=== PATIENT | female | born 1945 | race Caucasian/White ===

== ENCOUNTER 2017-05-03 15:25 | Outpatient (CLI) | payer MEDICARE, OTHER ==
[2017-05-03 19:05] LABS: ALBUMIN/GLOBULIN RATIO 1.2 (1.0-2.2); BILIRUBIN,TOTAL 0.7 mg/dL (0.2-1.0); BUN - BLOOD UREA NITROGEN 21 mg/dL (6-20); CALCIUM 9.5 mg/dL (8.5-10.3); CARBON DIOXIDE - CO2 26 mmol/L (21-32); CHLORIDE 105 mmol/L (101-111); CHOL/HDL RATIO 3.3 (<4.4); CHOLESTEROL 212 mg/dL; CREATININE 1.5 mg/dL (0.4-1.0); GFR - MDRD 34 (>89); GLUCOSE 105 mg/dL (70-100); HDL CHOLESTEROL 64 mg/dL; LDL/HDL RATIO 1.6 (<4.4); POTASSIUM 3.9 mmol/L (3.5-5.0); SODIUM 143 mmol/L (135-145); TOTAL PROTEIN 7.1 g/dL (6.7-8.2); TRIGLYCERIDES 235 mg/dL; VLDL CHOLESTEROL 47 mg/dL
[2017-05-03 19:13] LABS: INR 1.1 (0.8-1.2); PT - PROTHROMBIN TIME 11.9 secs (9.9-12.6)
[2017-05-03 19:17] LABS: BASOPHILS # (AUTO) 0.1 10^3/uL (0.0-0.1); BASOPHILS % (AUTO) 0.7 %; EOSINOPHILS # (AUTO) 0.3 10^3/uL (0.0-0.7); EOSINOPHILS % (AUTO) 3.6 %; HCT - HEMATOCRIT 37.3 % (37.0-47.0); HGB - HEMOGLOBIN 12.3 g/dL (12.0-16.0); LYMPHOCYTES % (AUTO) 10.7 %; MEAN CORPUSCULAR HEMOGLOBIN 33.4 pg (27.0-31.0); MEAN CORPUSCULAR HGB CONC 33.1 g/dL (32.0-36.0); MEAN PLATELET VOLUME 8.2 fL (7.9-10.8); MONOCYTES # (AUTO) 0.7 10^3/uL (0.0-1.0); MONOCYTES % (AUTO) 7.3 %; NEUTROPHILS # (AUTO) 7.4 10^3/uL (1.5-6.6); NEUTROPHILS % (AUTO) 77.7 %; NUCLEATED RED BLOOD CELLS AUTO 0.1 /100WBC; RED BLOOD COUNT 3.69 10^6/uL (4.20-5.40); RED CELL DISTRIBUTION WIDTH 17.8 % (12.0-15.0); UNCORRECTED WHITE BLOOD COUNT 9.5 x10^3/uL; WHITE BLOOD COUNT 9.5 x10^3/uL (4.8-10.8)
== END 2017-05-03 15:26 | disposition home or self-care (01) ==
LOC: LAB.WCP 15:25
PROVIDERS: ATTEND Family Medicine
DX: F10.20 Alcohol dependence, uncomplicated (principal)
CPT/HCPCS: 36415; 80053; 80061; 85025; 85610

== ENCOUNTER 2017-07-12 14:09 | Outpatient (CLI) | payer MEDICARE, OTHER ==
--- NOTE | 2017-07-12 18:20 | Ultrasound Report ---
RIGHT BREAST ULTRASOUND: 07/12/2017 CLINICAL INDICATION: Palpable abnormality right upper breast, history of left breast cancer status post lumpectomy. 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 FINDINGS: Ultrasound of the palpable abnormality identified by the patient was performed. Unremarkable parenchymal lobules are seen. No discrete solid or cystic lesion is identified. No sonographically suspicious findings are seen. IMPRESSION: NEGATIVE EXAMINATION. RECOMMENDATION: Routine annual screening unless otherwise clinically indicated. BIRADS category: 1, negative. TD: 07/12/2017 18:19
--- NOTE | 2017-07-14 08:54 | Mammography Report ---
DIGITAL DIAGNOSTIC BILATERAL MAMMOGRAM: 07/12/2017 CLINICAL INDICATION: Palpable abnormality right breast, history of left breast cancer status post lumpectomy and radiation therapy. COMPARISON: Films from [place], [place], dated 03/11/2015, 02/20/2013, 2011, 05/12/2010; breast ultrasound 02/20/2013; breast MRI 03/29/2013. TECHNIQUE: Bilateral CC, MLO, true lateral views were obtained. FINDINGS The breasts demonstrate scattered fibroglandular densities bilaterally. Postoperative and post-treatment changes in the left breast are stable. Coarse and punctate, typically benign calcifications are present. No suspicious masses, clustered microcalcifications, or regions of architectural distortion are identified. Specifically, no mammographic abnormality is appreciated in the 12 o'clock position of the right breast, at the site indicated by the marker. Please also refer to right breast ultrasound of the same day. IMPRESSION: BENIGN FINDINGS. RECOMMENDATIONS: Routine annual screening unless otherwise clinically indicated. BIRADS category 2 - Benign findings. STANDARD QUALIFYING STATEMENTS 1. This examination was reviewed with the aid of Computed-Aided Detection (CAD) . 2. A negative or benign imaging report should not delay biopsy if clinically suspicious findings are present. Consider surgical consultation if warranted. More than 5 % of cancers are not identified by imaging. 3. Dense breasts may obscure an underlying neoplasm. TD: 07/12/2017 18:26 CHRISTOFER
== END 2017-07-12 14:10 | disposition home or self-care (01) ==
LOC: DI 14:09
PROVIDERS: ATTEND Family Medicine
DX: N63.11 Unspecified lump in the right breast, upper outer quadrant (principal); Z85.3 Personal history of malignant neoplasm of breast
CPT/HCPCS: 76642; 77066

== ENCOUNTER 2017-09-22 10:26 | Outpatient (CLI) | payer MEDICARE, OTHER ==
--- NOTE | 2017-09-26 14:45 | DEXA Report ---
DEXA SCAN 09/22/2017 CLINICAL INDICATION: Postmenopausal. TECHNIQUE: Dual energy x-ray absorptiometry (DXA) was performed on a [employer] DD system. Regions measured are the AP spine, femoral neck, and, if needed, forearm. COMPARISON: None. FINDINGS Data for the lumbar spine is as follows: REGION BMD (g/cm/cm) T-SCORE Z-SCORE L1 1.087 -0.4 1.2 L2 1.211 0.1 1.6 L3 1.373 1.4 3.0 L4 1.614 3.4 5.0 L1-L4 1.334 1.3 2.8 NOTE: All evaluable vertebrae are used for classification. Data for the hip is as follows: REGION BMD (g/cm/cm) T-SCORE Z-SCORE Neck 0.902 -1.0 0.7 TOTAL 0.795 -1.7 -0.2 NOTE: The femoral neck or total proximal femur, whichever is lowest, is used for classification. IMPRESSION WHO CLASSIFICATION BASED ON THE INTERNATIONAL REFERENCE STANDARD IS OSTEOPENIA. FRACTURE RISK IS INCREASED. RECOMMENDATION: Patients with diagnosis of osteoporosis or osteopenia should have regular bone mineral density assessment. For those eligible for Medicare, routine testing is allowed once every 2 years. Testing frequency can be increased for patients who have rapidly progressing disease or for those who are receiving medical therapy to restore bone mass. COMMENT World Health Organization (WHO) definitions for osteoporosis and osteopenia: NORMAL BMD: T-score at 1.0 or higher, fracture risk is low. OSTEOPENIA BMD: T-score between 1.0 and -2.5, fracture risk is increased. OSTEOPOROSIS BMD: T-score at 2.5 or lower, fracture risk high. National Osteoporosis Foundation recommends: 1. Obtain adequate dietary calcium (at least 1200 mg per day) and vitamin D (400 -800 international units per day). 2. Participate, as appropriate, in regular weightbearing and muscle- strengthening exercise. 3. Avoid tobacco use and reduce alcohol and caffeine intake. 4. For more detailed information see the website at www.NOF.org. TD: 09/22/2017 16:18 MTDJohn
== END 2017-09-22 10:27 | disposition home or self-care (01) ==
LOC: DI 10:26
PROVIDERS: ATTEND Family Medicine
DX: M85.88 Other specified disorders of bone density and structure, other site (principal); F10.20 Alcohol dependence, uncomplicated
CPT/HCPCS: 77080

== ENCOUNTER 2018-03-15 15:31 | Outpatient (CLI) | payer MEDICARE, OTHER | END 2018-03-15 15:32 | disposition critical access hospital (66) | LOC: EMS 15:31 | PROVIDERS: ATTEND Surgery | DX: R46.4 Slowness and poor responsiveness (principal) | CPT/HCPCS: A0425; A0427 ==

== ENCOUNTER 2018-03-15 15:49 | Inpatient (IN) | payer MEDICARE, OTHER ==
[2018-03-15] MEDS ORDERED: SODIUM CHLORIDE 0.9% 1,000 ML IV ONE (16:11)
[2018-03-15 16:51] LABS: BASOPHILS # (AUTO) 0.1 10^3/uL (0.0-0.1); EOSINOPHILS # (AUTO) 0.2 10^3/uL (0.0-0.7); EOSINOPHILS % (AUTO) 1.3 %; HGB - HEMOGLOBIN 14.6 g/dL (12.0-16.0); LYMPHOCYTES # (AUTO) 1.2 10^3/uL (1.5-3.5); LYMPHOCYTES % (AUTO) 8.7 %; MEAN CORPUSCULAR HEMOGLOBIN 28.6 pg (27.0-31.0); MEAN CORPUSCULAR HGB CONC 31.6 g/dL (32.0-36.0); MEAN CORPUSCULAR VOLUME 90.6 fL (81.0-99.0); MEAN PLATELET VOLUME 9.5 fL (7.9-10.8); MONOCYTES # (AUTO) 0.6 10^3/uL (0.0-1.0); MONOCYTES % (AUTO) 4.1 %; NEUTROPHILS # (AUTO) 12.1 10^3/uL (1.5-6.6); NEUTROPHILS % (AUTO) 84.9 %; PLT - PLATELET COUNT 251 10^3/uL (130-450); RED BLOOD COUNT 5.09 10^6/uL (4.20-5.40); RED CELL DISTRIBUTION WIDTH 18.1 % (12.0-15.0); WHITE BLOOD COUNT 14.3 x10^3/uL (4.8-10.8)
[2018-03-15 16:55] LABS: INR 1.3 (0.8-1.2); PT - PROTHROMBIN TIME 14.1 secs (9.9-12.6)
--- NOTE | 2018-03-15 17:03 | ED Physician Documentation ---
History of Present Illness - Stated complaint Stated Complaint: ALOC - Chief complaint Chief Complaint: Neuro - History obtained from History obtained from: Caregiver - Additonal information Additional information: 73-year-old female was brought into the emergency department for confusion and altered mental status. The patient was found on the floor covered in her feces and significantly confused and disoriented. The patient was last seen normal 2 months ago. No history was obtained from the patient secondary to the acuity of her condition. The patient is following basic commands but is not articulated any issue to myself or staff. The patient did have multiple empty vodka bottles. Review of Systems Unable to obtain: Confused PD PAST MEDICAL HISTORY - Past Medical History Past Medical History: No Cardiovascular: Hypertension Respiratory: None Neuro: None Endocrine/Autoimmune: None GI: None : Incontinence HEENT: None Psych: Depression Musculoskeletal: None Derm: None - Past Surgical History Past Surgical History: Yes Ortho: Spine surgery - Present Medications Home Medications: Ambulatory Orders Medication Instructions Recorded Confirmed Amlodipine Besylate 1 tab PO DAILY 11/22/17 11/22/17 Cholecalciferol (Vitamin D3) 1 cap PO DAILY 11/22/17 11/22/17 [Vitamin D3] Lactobacillus Acidophilus 1 tab PO DAILY 11/22/17 11/22/17 [Probiotic Acidophilus] Lovastatin 1 tab PO DAILY 11/22/17 11/22/17 PARoxetine HCl [Paroxetine HCl] 1 tab PO DAILY 11/22/17 11/22/17 Tolterodine Tartrate [Detrol LA] 1 cap PO DAILY 11/22/17 11/22/17 Trazodone HCl 1 tab PO PRN PRN 11/22/17 11/22/17 - Allergies Allergies/Adverse Reactions: Allergies Allergy/AdvReac Type Severity Reaction Status Date / Time lisinopril Allergy Respiratory Verified 03/15/18 15:58 - Social History Does the pt smoke?: Yes Smoking Status: Current every day smoker Does the pt drink ETOH?: Yes - Immunizations Immunizations are current?: No - POLST Patient has POLST: No PD ED PE NORMAL - General General: Other (73-year-old disheveled female who is alert but appears significantly confused and follows simple commands. The patient appears cachectic and in a poor state of health) - HEENT HEENT: Atraumatic, PERRL, EOMI, Ears normal, Other (The patient has dry mucous membranes and significant dental decay) - Neck Neck: Supple, no meningeal sign - Cardiac Cardiac: RRR, Strong equal pulses - Respiratory Respiratory: No respiratory distress, Clear bilaterally - Abdomen Abdomen: Soft, Non tender, Non distended - Derm Derm: Normal color - Extremities Extremities: No deformity, No tenderness to palpate, Normal ROM s pain - Neuro Neuro: Other (The patient's alert, follows simple commands, the patient's face is symmetric, 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 The comprehensive neuro evaluation is limited secondary to the acuity of the patient's condition) Results - Vitals Vitals: Vital Signs - 24 hr 03/15/18 03/15/18 15:50 17:01 Temperature 36.4 C L 35.9 C L Heart Rate 85 85 Respiratory 16 19 Rate Blood Pressure 132/100 H 150/92 H O2 Saturation 94 99 Oxygen O2 Source Room air - EKG (time done) 16:16 Rate: Rate (enter#) Rhythm: NSR Intervals: Prolonged QT, QRS normal QRS: Normal Ischemia: T wave inversion, Non specific changes Other comments: Other comments (Sinus rhythm with nonspecific changes: No prior EKG to compare to) Compare to prior EKG: Old EKG unavailable - Labs Labs: Laboratory Tests 03/15/18 03/15/18 03/15/18 16:37 16:37 16:37 WBC 14.3 H RBC 5.09 Hgb 14.6 Hct 46.1 MCV 90.6 MCH 28.6 MCHC 31.6 L RDW 18.1 H Plt Count 251 MPV 9.5 Neut # (Auto) 12.1 H Lymph # (Auto) 1.2 L [place] # (Auto) 0.6 Eos # (Auto) 0.2 Baso # (Auto) 0.1 Absolute Nucleated RBC 0.04 Nucleated RBC % 0.3 PT 14.1 H INR 1.3 H APTT 36.0 H VBG pH VBG pCO2 VBG pO2 VBG HCO3 VBG Total CO2 VBG O2 Saturation VBG Base Excess Sodium 155 H* Potassium 3.0 L Chloride 109 Carbon Dioxide 24 Anion Gap 22.0 H BUN 130 H* Creatinine 4.0 H Estimated GFR (MDRD) 11 L Glucose 125 H Lactic Acid Calcium 9.9 Total Bilirubin 1.2 H AST 25 ALT 15 Alkaline Phosphatase 91 Total Creatine Kinase 15 L Troponin I B-Natriuretic Peptide Total Protein 7.4 Albumin 3.4 Globulin 4.0 Albumin/Globulin Ratio 0.9 L Lipase 74 H TSH Free T4 Urine Color Urine Clarity Urine pH Ur Specific [place] Urine Protein Urine Glucose (UA) Urine Ketones Urine Occult Blood Urine Nitrite Urine Bilirubin Urine Urobilinogen Ur Leukocyte Esterase Urine RBC Urine WBC Urine WBC Clumps Ur Squamous Epith Cells Urine Bacteria Ur Microscopic Review Urine Culture Comments Salicylates < 6.0 Urine Opiates Screen Ur Oxycodone Screen Urine Methadone Screen Ur Propoxyphene Screen Acetaminophen < 10 L Ur Barbiturates Screen Ur Tricyclics Screen Ur Phencyclidine Scrn Ur Amphetamine Screen U Methamphetamines Scrn U Benzodiazepines Scrn Urine Cocaine Screen U Cannabinoids Screen Ethyl Alcohol < 5.0 Serum Ketones SMALL H 03/15/18 03/15/18 03/15/18 16:37 16:37 16:37 WBC RBC Hgb Hct MCV MCH MCHC RDW Plt Count MPV Neut # (Auto) Lymph # (Auto) [place] # (Auto) Eos # (Auto) Baso # (Auto) Absolute Nucleated RBC Nucleated RBC % PT INR APTT VBG pH VBG pCO2 VBG pO2 VBG HCO3 VBG Total CO2 VBG O2 Saturation VBG Base Excess Sodium Potassium Chloride Carbon Dioxide Anion Gap BUN Creatinine Estimated GFR (MDRD) Glucose Lactic Acid 2.4 H Calcium Total Bilirubin AST ALT Alkaline Phosphatase Total Creatine Kinase Troponin I 0.11 B-Natriuretic Peptide 243 H Total Protein Albumin Globulin Albumin/Globulin Ratio Lipase TSH Free T4 Urine Color Urine Clarity Urine pH Ur Specific [place] Urine Protein Urine Glucose (UA) Urine Ketones Urine Occult Blood Urine Nitrite Urine Bilirubin Urine Urobilinogen Ur Leukocyte Esterase Urine RBC Urine WBC Urine WBC Clumps Ur Squamous Epith Cells Urine Bacteria Ur Microscopic Review Urine Culture Comments Salicylates Urine Opiates Screen Ur Oxycodone Screen Urine Methadone Screen Ur Propoxyphene Screen Acetaminophen Ur Barbiturates Screen Ur Tricyclics Screen Ur Phencyclidine Scrn Ur Amphetamine Screen U Methamphetamines Scrn U Benzodiazepines Scrn Urine Cocaine Screen U Cannabinoids Screen Ethyl Alcohol Serum Ketones 03/15/18 03/15/18 03/15/18 16:37 16:37 16:55 WBC RBC Hgb Hct MCV MCH MCHC RDW Plt Count MPV Neut # (Auto) Lymph # (Auto) [place] # (Auto) Eos # (Auto) Baso # (Auto) Absolute Nucleated RBC Nucleated RBC % PT INR APTT VBG pH 7.486 H VBG pCO2 34.1 L VBG pO2 59.5 H VBG HCO3 25.2 VBG Total CO2 26.2 VBG O2 Saturation 89.7 H VBG Base Excess 2.3 H Sodium Potassium Chloride Carbon Dioxide Anion Gap BUN Creatinine Estimated GFR (MDRD) Glucose Lactic Acid Calcium Total Bilirubin AST ALT Alkaline Phosphatase Total Creatine Kinase Troponin I B-Natriuretic Peptide Total Protein Albumin Globulin Albumin/Globulin Ratio Lipase TSH 1.31 Free T4 1.06 Urine Color DARK YELLOW Urine Clarity HAZY Urine pH 5.5 Ur Specific [place] 1.025 Urine Protein TRACE Urine Glucose (UA) NEGATIVE Urine Ketones NEGATIVE Urine Occult Blood MODERATE H Urine Nitrite NEGATIVE Urine Bilirubin NEGATIVE Urine Urobilinogen 0.2 (NORMAL) Ur Leukocyte Esterase LARGE H Urine RBC 0-5 Urine WBC >25 H Urine WBC Clumps PRESENT Ur Squamous Epith Cells FEW Squamous Urine Bacteria Many H Ur Microscopic Review INDICATED Urine Culture Comments INDICATED Salicylates Urine Opiates Screen NEGATIVE Ur Oxycodone Screen NEGATIVE Urine Methadone Screen NEGATIVE Ur Propoxyphene Screen NEGATIVE Acetaminophen Ur Barbiturates Screen NEGATIVE Ur Tricyclics Screen NEGATIVE Ur Phencyclidine Scrn NEGATIVE Ur Amphetamine Screen NEGATIVE U Methamphetamines Scrn NEGATIVE U Benzodiazepines Scrn NEGATIVE Urine Cocaine Screen NEGATIVE U Cannabinoids Screen NEGATIVE Ethyl Alcohol Serum Ketones - Rads (name of study) CT head Radiology: Final report received (IMPRESSION: Age-related cortical atrophic changes without evidence of acute intracranial abnormality. ) CXR Radiology: Final report received (IMPRESSION: Old posterior left rib fractures and cervical spine fusion noted, otherwise unremarkable single view chest. ) PD MEDICAL DECISION MAKING - ED course ED course: The patient is profoundly dehydrated which is causing acute renal failure and severe hyponatremia. The patient also has an acute urine infection. The patient will require admission to the hospital for ongoing management of all her acute issues. The findings and plan were discussed with the hospitalist Dr. Scales who accepts the patient onto her service. Departure - Departure Disposition: 66 [facility] DC/Xfer Clinical Impression: Acute confusional state, Hypernatremia, Severe dehydration, Hyponatremia Acute renal failure Qualifiers: Acute renal failure type: unspecified Qualified Code(s): N17.9 - Acute kidney failure, unspecified Urinary tract infection Qualifiers: Urinary tract infection type: site unspecified Hematuria presence: without hematuria Qualified Code(s): N39.0 - Urinary tract infection, site not specified
[2018-03-15] MEDS ORDERED: FOLIC ACID INJ 1 MG, THIAMINE INJ 100 MG, MAGNESIUM SULFATE 2 GM, MULTIVITAMIN 10 ML in... IV STA ×5 (17:05)
[2018-03-15 17:06] LABS: KETONES, SERUM (ACETEST) SMALL (NEGATIVE)
[2018-03-15 17:07] LABS: VBG BASE EXCESS 2.3 mmol/L (-2 - +2); VBG PCO2 34.1 mmHg (41-51); VBG PH 7.486 (7.31-7.41); VBG PO2 59.5 mmHg (25-47); VBG TOTAL CO2 26.2 mmol/L (24-29)
[2018-03-15 17:17] LABS: MUDS CUTOFF CONCENTRATIONS CUTOFF CONC BELOW:
[2018-03-15 17:21] LABS: ACETAMINOPHEN < 10 ug/mL (10-30); ALBUMIN 3.4 g/dL (3.2-5.5); ALBUMIN/GLOBULIN RATIO 0.9 (1.0-2.2); ALKALINE PHOSPHATASE 91 IU/L (42-121); ALT ALANINE AMINOTRANSFERASE 15 IU/L (10-60); AST ASPARTATE AMINOTRANSFERASE 25 IU/L (10-42); BILIRUBIN,TOTAL 1.2 mg/dL (0.2-1.0); CALCIUM 9.9 mg/dL (8.5-10.3); CARBON DIOXIDE - CO2 24 mmol/L (21-32); CHLORIDE 109 mmol/L (101-111); CK- CREATINE KINASE 15 IU/L (22-269); GFR - MDRD 11 (>89); GLUCOSE 125 mg/dL (70-100); LIPASE 74 U/L (22-51); SALICYLATE < 6.0 mg/dL; TOTAL PROTEIN 7.4 g/dL (6.7-8.2)
[2018-03-15 17:22] LABS: BUN - BLOOD UREA NITROGEN 130 mg/dL (6-20); SODIUM 155 mmol/L (135-145)
[2018-03-15 17:26] LABS: THYROID STIMULATING HORMONE 1.31 uIU/mL (0.34-5.60)
[2018-03-15 17:28] LABS: FREE T4 (FREE THYROXINE) 1.06 ng/dL (0.58-1.64)
[2018-03-15 17:29] LABS: GLUCOSE, URINE (UA) NEGATIVE (NEGATIVE); KETONES,URINE (UA) NEGATIVE (NEGATIVE); LEUKOCYTE ESTERASE, URINE LARGE (NEGATIVE); NITRITE,URINE NEGATIVE (NEGATIVE); OCCULT BLOOD,URINE MODERATE (NEGATIVE); PH,URINE 5.5 PH (5.0-7.5); PROTEIN,URINE TRACE mg/dL (NEGATIVE); UROBILINOGEN,URINE 0.2 (NORMAL) E.U./dL (NORMAL)
[2018-03-15] MEDS ORDERED: ACETAMINOPHEN 325 MG TABLET PO PRN (17:35)
[2018-03-15] MEDS ORDERED: ONDANSETRON 4 MG/2 ML VIAL IVP PRN (17:35)
[2018-03-15] MEDS ORDERED: ONDANSETRON ODT 4 MG TABLET TL PRN (17:35)
[2018-03-15] MEDS ORDERED: HYDROmorphone 0.5 MG/0.5 ML SYRINGE IVP PRN (17:35)
--- NOTE | 2018-03-15 17:35 | CT Report ---
Reason: AMS Procedure Date: 03/15/2018 Accession Number: [id number] / [id number] Procedure: CT - Head W/O CPT Code: FULL RESULT: EXAM: CT HEAD EXAM DATE: 03/15/2018 05:17 PM. CLINICAL HISTORY: Altered mental status. COMPARISON: None. TECHNIQUE: Multiaxial CT images were obtained from the foramen magnum to the vertex. Reformats: Sagittal and coronal. IV contrast: None. In accordance with CT protocol optimization, one or more of the following dose reduction techniques were utilized for this exam: automated exposure control, adjustment of mA and/or KV based on patient size, or use of iterative reconstructive technique. FINDINGS: Parenchyma: No intraparenchymal hemorrhage. No evidence of mass, midline shift, or CT findings of acute infarction. Barraza-white differentiation is distinct. Mild chronic microangiopathic white matter changes are evident. Extraaxial Spaces: Normal for age. No subdural or epidural collections identified. Ventricles: The ventricles and cortical sulci are prominent, consistent with age-related tissue loss. Sinuses and orbits: Imaged paranasal sinuses, orbits, and mastoids show no significant abnormality. Bones: No evidence of fracture or calvarial defect. Other: None. IMPRESSION: Age-related cortical atrophic changes without evidence of acute intracranial abnormality. RADIA
--- NOTE | 2018-03-15 17:48 | XRAY Report ---
Reason: chest pain Procedure Date: 03/15/2018 Accession Number: [id number] / [id number] Procedure: XR - Chest 1 View X-Ray CPT Code: 31392 FULL RESULT: EXAM: CHEST RADIOGRAPHY EXAM DATE: 03/15/2018 05:20 PM. CLINICAL HISTORY: Chest pain. COMPARISON: None. TECHNIQUE: 1 view. FINDINGS: Lungs/Pleura: No focal opacities evident. No pleural effusion. No pneumothorax. Mediastinum: Within exam limitations, the cardiomediastinal contour is normal. Other: Old posterior left rib fractures noted. Cervical spine fusion noted. IMPRESSION: Old posterior left rib fractures and cervical spine fusion noted, otherwise unremarkable single view chest. RADIA
[2018-03-15 17:56] LABS: CLARITY,URINE HAZY (CLEAR)
[2018-03-15 17:57] LABS: AMPHETAMINE SCREEN,URINE NEGATIVE (NEGATIVE); BACTERIA,URINE Many /HPF (None Seen); BENZODIAZEPINES SCREEN, URINE NEGATIVE (NEGATIVE); BILIRUBIN,URINE NEGATIVE (NEGATIVE); COCAINE SCREEN URINE NEGATIVE (NEGATIVE); ICTOTEST,URINE NEGATIVE; METHADONE SCREEN, URINE NEGATIVE (NEGATIVE); METHAMPHETAMINES SCREEN, URINE NEGATIVE (NEGATIVE); OPIATE SCREEN, URINE NEGATIVE (NEGATIVE); OXYCODONE SCREEN, URINE NEGATIVE (NEGATIVE); PROPOXYPHENE SCREEN, URINE NEGATIVE (NEGATIVE); RBC,URINE 0-5 /HPF (0-5); SQUAMOUS EPITHELIAL CELL,UR FEW Squamous (<= Few); TRICYCLIC ANTIDEPRESSANT,URINE NEGATIVE (NEGATIVE); WBC CLUMPS,URINE PRESENT
[2018-03-15] MEDS ORDERED: cefTRIAXone 2 GM in SODIUM CHLORIDE 0.9% MINIBAG 100 ML IV STA (18:00)
[2018-03-15] MEDS ORDERED: THIAMINE IV SCH (19:00)
[2018-03-15] MEDS ORDERED: FOLIC ACID IV SCH (19:00)
[2018-03-15] MEDS ORDERED: MULTIVITAMIN IV SCH (19:00)
[2018-03-15] MEDS ORDERED: DEXTROSE 5% IV SCH (19:00)
[2018-03-15] MEDS: DEXTROSE 5% 1,000 ML IV SCH (19:50)
--- NOTE | 2018-03-15 20:33 | HISTORY & PHYSICAL EXAMINATION ---
DATE OF SERVICE: 03/15/2018 Physician: Hanh Scales MD PRIMARY CARE PROVIDER: Socorro Pereira DO. ADMITTING PROVIDER: Hanh Scales MD. CHIEF COMPLAINT: Found down and unconscious in her assisted living facility. HISTORY OF PRESENT ILLNESS: Patient is a 73-year-old female who [place] moved in with son and [id number], approximately 2013. This was in [place]. Sometime in late 2016, [place] Her healthcare was in [facility] in [place] in the past, and was at [facility] and [facility] when she was living with her son. She has a history of alcohol abuse. She has been in rehab twice. She has not kept her appointments with Dr. Pereira for the last 2 visits. She was sent a letter reminding her about her responsibilities in January 2018. She was last physically contacted and was seen on site 5 days prior to today. Last phone conversation with her was 3 days ago. It is unclear when she fell down in her apartment, but she was found down today. It is unclear what prompted the visit to her apartment, but she was found on the floor, covered in her feces and significantly confused and disoriented. Multiple empty bottles of vodka were also present in the apartment. [facility], emergency room physician, Dr. Hay, and [facility]. The patient is unable to provide history at this time because of her confusion. Dr. Hay found her to be very confused, cachectic, disheveled, smelling of urine. She had severely dry oral mucosa and significant dental decay. Abdomen and respiratory status were benign. She was able to follow simple commands and move her lower extremities. She was afebrile, slightly hypertensive at 132/90, and reading at 16 breaths a minute with a pulse of 85 and O2 sat 94% on room air. LABORATORY/DATA The CT of her head was done because of confusion, and it was negative. She has age-related cortical atrophic changes. Chest x-ray has old posterior left rib fractures and a C-spine fusion, but otherwise unremarkable. Sodium was 155, potassium 3, BUN 130, creatinine 4. Random glucose 2.4. White cell count 14.3, hemoglobin 14.6. Urinalysis had moderate occult blood, large leukocyte esterase, 0-5 red cells, greater than 25 white cells, few squamous cells, many bacteria, and a culture is pending. Blood cultures were done as well. The emergency room physician has contacted our service and requested the patient be admitted for severe dehydration and renal failure. PAST MEDICAL HISTORY 1. Alcohol abuse, as above. Her past medical record notes her to have been in rehab twice; however, I am unable to get with regard to withdrawal, delirium tremens, etc. 2. Osteoporosis. She fell in 09/2017 in her bedroom and has a right lateral malleolar fracture. She is supposed to be on calcium, vitamin D, and alendronate. 3. Chronic kidney disease, stage 3, with anemia of chronic disease. She has secondary hyperparathyroidism from this of renal origin. She has a vitamin D deficiency. Baseline creatinine is 1.3-1.5. When she was going to have a colostomy takedown in 05/2014, her creatinine had crept up to 2.2. Lasix was stopped, and creatinine came back down to 1.78, 05/2014. 4. Infiltrating ductal carcinoma of the left breast, diagnosed 03/2013. She underwent a lumpectomy and sentinel lymph biopsy. This was done at [facility]. She was on tamoxifen for 5 years. She also developed a right breast mass with ultrasound negative, 10/2017. She was seen by Dr. Letitia Marquez of [facility], taken off her tamoxifen. 5. Overactive bladder in a G3, P3 patient. 6. Depression with anxiety. 7. Hyperlipidemia. 8. Septic shock with Clostridium difficile colitis, resulting in hospitalization at [facility], 02/2014. She ended up having a colostomy with colon resection. Takedown of the colostomy was done 05/2014. 9. Cervical spine arthritis with C-spine fusion. 10. EGD and colonoscopies in the past have shown colon polyps and gastroesophageal reflux disease. 11. Irritable bowel syndrome. ALLERGIES: SHE IS ALLERGIC TO LISINOPRIL. It resulted in such severe angioneurotic edema, she was intubated for 3 days at [facility] in [place] in 2010. MEDICATIONS: Reviewed from Dr. Socorro Scheidt's notes. 1. Alendronate 1 tablet weekly for osteoporosis. 2. Detrol-LA 4 mg daily. 3. Amlodipine 10 mg p.o. daily. 4. Trazodone 100 mg at bedtime. 5. Lovastatin 40 mg in the evening. 6. Paxil 40 mg daily. NOTE: It is unclear how much of these medications she takes. Alendronate was last filled 10/2017 (90 days), amlodipine 04/2017 (90 days), trazodone 11/2017 (90 days). 7. Vitamin D 1000 international units daily. SOCIAL HISTORY: Limited at this time. Per review in [facility], she is . Smoked 1 pack per day for 30 years and quit. Problems with alcohol abuse and alcoholism, with rehab twice in her life. Son lives in [place]. FAMILY HISTORY: Dad of lung cancer, but also had coronary artery disease at a young age, diabetes mellitus. Mom in her late 80s/early 90s of lung cancer. She had 1 sister who has Crohn's. Three children are healthy. FUNCTIONAL CAPACITY: Unobtainable at this time. The patient is described as an independent woman who lives in an assisted living facility. There is no description of the use of a walker. We will get functional status when she is more awake and after I have spoken to family. REVIEW OF SYSTEMS: Unobtainable in this obtunded female. PHYSICAL EXAMINATION VITALS: She is seen in the emergency room. Temperature is 35.9 rectally, pulse is 78, blood pressure 146/76, respirations 19, 97% on room air. GENERAL: She is a malodorous, elderly, gaunt, cachectic female who is extremely disheveled. HEENT: Face expression is slack, mouth open breathing with snoring when I initially walk in. She does not respond to my name or the touch of her shoulder, but on touching her for physical exam, her eyes open wide and pupils are reactive. Some of her teeth are gone. Dental caries in some. Dried matter on the rest of her teeth and gums. Profoundly dry oral mucosa of tongue, buccal mucosa, cracked lips. NECK: Supple, cachectic, no JVD or goiter. No bruits. LUNGS: Clear to auscultation and percussion with slow, shallow unlabored respiration. Her chest wall is with severe loss of muscle mass and rib cage easily visible, as are spinous processes. CARDIAC: Has a hard knocking PMI. Regular rate and rhythm with systolic ejection murmur at left lower sternal border. No right ventricular lift. ABDOMEN: Soft, concave. No fluid wave. Liver edge palpable below the right costal margin. Normal bowel sounds. No other masses. She grimaces with pain and tries to move my hands away when I palpate mid abdomen and suprapubic area. EXTREMITIES: Gaunt, cachectic. No clubbing, cyanosis or edema. Profound loss of muscle mass. NEUROLOGIC: She responds to touch by opening her eyes and going, "What?" Very slow psychomotor response time. Is able to follow one-step commands on my third request. For instance, I asked her to please raise her right hand, and it took me 3 prompts for her to do so, but there are no focal deficits. No cranial nerve deficits. No tremors. No agitation. LABORATORY DATA: She has a mildly elevated white cell count of 14.3 without a left shift. Hemoglobin and hematocrit are normal at 14 and 46. INR is 1.3. Venous blood gas is 7.486, pCO2 34, pO2 59. Base excess positive 2.3. Sodium 155, potassium 3, anion gap 22, BUN 130, creatinine 4. Random glucose 125. Lactic acid 2.4. Bilirubin 1.2. AST and ALT are normal, as are alkaline phosphatase. Ammonia is 22. CK is 15. BNP 243. Lipase 74. TSH 1.31, free T4 1.06. Urinalysis with hematuria and bacteria. Toxicology screens negative for opiates, oxycodone, methadone, propoxyphene, barbiturates, tricyclics, phencyclidine, amphetamines, methamphetamines, benzodiazepines, cocaine or cannabinoids. Ethyl alcohol less than 5. Small amount of serum ketones. Acetaminophen less than 10, and salicylate less than 6. CT of the head has atrophic changes, chest x-ray negative for acute cardiopulmonary process. ASSESSMENT/PLAN 1. Dehydration that is quite severe, attributed to lack of p.o. intake in a patient who was found unconscious for an unknown length of time, possibly 3 days. PLAN: 1. Inpatient admission. 2. Attestation: The patient will be admitted less than 96 hours. 3. Start D5 without normal saline 4. Monitor daily BMP. If creatinine doesn't respond to the IVF, may need transfer to higher level of care. 2. Severe hypernatremia. Attributed to lack of po intake and down on floor unknown length of time. CK without evidence of rhabdomyolysis. PLAN: Again, give D5. Multivitamins will also be given in the D5 as opposed to normal saline. She has already received 2 liters of normal saline in the ED. Check CK in am. 3. Acute kidney failure superimposed of chronic kidney disease stage 3. PLAN 1. Daily monitoring of BMP. 2. Avoid nephrotoxic agents. 3. Renal ultrasound tomorrow if her BUN and creatinine do not respond. 4. She has secondary hyperparathyroidism with low Vitamin D from her CKD, will resume Vitamin D 1000 IU po daily when awake. She also has anemia of chronic disease from her CKD. Current CBC shows hemoconcentration and is actually at a normal level. She is usually 10-11. 4. Fall in home, most likely secondary to intoxication will be the assumption because of the vodka bottles and her history of alcohol abuse. At this time, no fractures. Plan for Social Work consult to review safety needs. Will speak to family. Will also speak to the patient when she is more alert. With her severe cachexia and unknown length of time that she has been found down, I will order PT and OT as well. 5. Alcohol abuse. PLAN 1. Banana bag using D5. 2. CIWA protocol for observation to make sure she does not go into withdrawal. 3. Contact family to establish their last contact with her. 4. One time magnesium rider. 6. Essential hypertension. PLAN: She is usually on amlodipine. We will continue to watch blood pressure while she is here. Resume amlodipine when she is more awake and able to take oral medications. We will avoid use of HORACE inhibitors because of her history of angioneurotic edema and intubation. 7. Major depressive disorder, unspecified. PLAN: Resume Paxil when taking oral medication. Deep venous thrombosis prophylaxis will be MABEL saunders. Avoid Lovenox in this cachectic woman who may have alcoholic liver disease. CODE STATUS: FULL CODE STATUS. TD: 03/15/2018 19:36 [facility]
[2018-03-15] MEDS ORDERED: DEXTROSE 5% 1,000 ML IV ONE (20:39)
[2018-03-15] MEDS ORDERED: THIAMINE 100 MG/1 ML 2 ML MDV ONE (20:42)
[2018-03-15] MEDS ORDERED: SODIUM CHLORIDE FLUSH 0.9% 10 ML SYRINGE ONE (20:51)
[2018-03-15] MEDS: SODIUM CHLORIDE FLUSH 0.9% 10 ML SYRINGE IVP PRN (20:56)
[2018-03-15] MEDS: PANTOPRAZOLE 40 MG VIAL IVP SCH (20:56)
[2018-03-16] MEDS: SODIUM CHLORIDE FLUSH 0.9% 10 ML SYRINGE IVP SCH ×3 (00:45→16:17)
[2018-03-16 06:15] LABS: BASOPHILS # (AUTO) 0.1 10^3/uL (0.0-0.1); BASOPHILS % (AUTO) 0.6 %; EOSINOPHILS # (AUTO) 0.4 10^3/uL (0.0-0.7); EOSINOPHILS % (AUTO) 3.1 %; HGB - HEMOGLOBIN 12.5 g/dL (12.0-16.0); LYMPHOCYTES # (AUTO) 1.4 10^3/uL (1.5-3.5); LYMPHOCYTES % (AUTO) 11.8 %; MEAN CORPUSCULAR HEMOGLOBIN 29.1 pg (27.0-31.0); MEAN CORPUSCULAR HGB CONC 32.5 g/dL (32.0-36.0); MEAN CORPUSCULAR VOLUME 89.4 fL (81.0-99.0); MEAN PLATELET VOLUME 9.7 fL (7.9-10.8); MONOCYTES # (AUTO) 0.4 10^3/uL (0.0-1.0); MONOCYTES % (AUTO) 3.5 %; NEUTROPHILS # (AUTO) 9.5 10^3/uL (1.5-6.6); PLT - PLATELET COUNT 165 10^3/uL (130-450); RED BLOOD COUNT 4.32 10^6/uL (4.20-5.40); RED CELL DISTRIBUTION WIDTH 17.4 % (12.0-15.0); WHITE BLOOD COUNT 11.8 x10^3/uL (4.8-10.8)
[2018-03-16 06:43] LABS: ALBUMIN 2.8 g/dL (3.2-5.5); ALBUMIN/GLOBULIN RATIO 0.8 (1.0-2.2); BILIRUBIN,TOTAL 0.7 mg/dL (0.2-1.0); CALCIUM 8.6 mg/dL (8.5-10.3); CREATININE 3.1 mg/dL (0.4-1.0); TOTAL PROTEIN 6.1 g/dL (6.7-8.2)
[2018-03-16] MEDS: SODIUM CHLORIDE FLUSH 0.9% 10 ML SYRINGE IVP PRN (06:52)
[2018-03-16] MEDS: PANTOPRAZOLE 40 MG VIAL IVP SCH (06:52)
--- NOTE | 2018-03-16 07:49 | PROVIDER PROGRESS NOTE ---
Subjective - Prog Note Date Prog Note Date: 03/16/18 Prog Note Time: 07:47 - Subjective Subjective: She is awake. Responds to voice much more quickly than she did yesterday. But her answers are slow to, if at all. Severe psychomotor slowing. No agitation. Overnight she is remained normotensive, no fevers, no tachycardia. Current Medications - Current Medications Current Medications: Active Medications Acetaminophen (Tylenol) 650 mg PO Q4HR PRN PRN Reason: Pain 1 to 4 Hydromorphone HCl (Dilaudid Inj Syringe) 0.5 mg IVP Q2H PRN PRN Reason: Pain 8 to 10 Dextrose (D5w) 1,000 mls @ 125 mls/hr IV .Q8H [facility] Last Infusion: 03/16/18 06:54 Dose: 125 mls/hr Magnesium Sulfate (Magnesium Sulfate) 2 gm in 50 mls @ 50 mls/hr IV ONCE ONE Stop: 03/16/18 09:59 Ceftriaxone Sodium 1 gm/ (Dextrose) 100 mls @ 200 mls/hr IV DAILY [facility] Potassium Chloride (Potassium Chloride) 10 meq in 100 mls @ 100 mls/hr IV Q1H [facility] Stop: 03/16/18 12:59 Ondansetron HCl (Zofran Inj) 4 mg IVP Q6HR PRN PRN Reason: Nausea / Vomiting Ondansetron HCl (Zofran Odt) 4 mg TL Q6HR PRN PRN Reason: Nausea / Vomiting Pantoprazole Sodium (Protonix) 40 mg IVP QDAC [facility] Last Admin: 03/16/18 06:52 Dose: 40 mg Polyethylene Glycol (Miralax) 17 gm PO DAILY [facility] Sodium Chloride (Normal Saline Flush 0.9%) 10 ml IVP PRN PRN PRN Reason: NEEDED PER PROVIDER ORDERS Last Admin: 03/16/18 06:52 Dose: 10 ml Sodium Chloride (Normal Saline Flush 0.9%) 10 ml IVP 0100,0900,1700 [facility] Last Admin: 03/16/18 00:45 Dose: Not Given Amlodipine Besylate 10 mg PO DAILY 11/22/17 Cholecalciferol (Vitamin D3) [Vitamin D3] 1,000 cap PO DAILY 11/22/17 Lactobacillus Acidophilus [Probiotic Acidophilus] 1 tab PO DAILY 11/22/17 Lovastatin 40 mg PO QPM 11/22/17 PARoxetine HCl [Paroxetine HCl] 40 mg PO DAILY 11/22/17 Tolterodine Tartrate [Detrol LA] 4 mg PO DAILY 11/22/17 Trazodone HCl 100 tab PO QPM PRN 11/22/17 Alendronate Sodium 70 mg PO Q7D 03/15/18 Objective - Vital Signs/Intake & Output Reviewed Vital Signs: Yes Vital Signs: Vital Signs x48h Temp Pulse Resp BP Pulse Ox 03/16/18 04:47 36.3 C L 58 L 16 130/69 97 03/16/18 00:05 36.3 C L 75 16 146/80 H 98 Intake & Output: Intake & Output 03/13/18 03/14/18 03/15/18 03/16/18 23:59 23:59 23:59 23:59 Intake Total 7228.863 9155.2 Output Total 50 200 Balance 1235.260 811.2 - Objective General Appearance: positive: No acute distress, Lethargic Eyes Bilateral: positive: PERRL, EOMI ENT: positive: Dry mucous membranes (Continue. They have improved from yesterday to today but there is still dry. Lips are not nearly as cracked. Nurses have done really great dental care and she does not have all that good to eat nasty stuff hanging out on her teeth.) Neck: positive: No JVD. negative: Stiff neck, Carotid bruit Respiratory: positive: Chest non-tender, Other (I failed to note on yesterday's exam that her left breast is deformed. Retracted underneath the areola, and the right breast is shrunken and atrophic but without masses.). negative: Wheezes, Rales, Rhonchi Cardiovascular: positive: Regular rate & rhythm, Systolic murmur. negative: Gallop/S4, Friction rub Abdomen: positive: Non-tender, No organomegaly, Nml bowel sounds, No distention Skin: positive: Warm, Dry Extremities: positive: Non-tender, No pedal edema, Other (severe loss of muscle mass diffusely) Neurologic/Psychiatric: positive: Motor nml, Disoriented to person, Disoriented to place, Disoriented to time, Weakness, Slurred/abnml speech - Lab Results Fish Bones: 03/16/18 05:30 03/16/18 05:30 Other Labs: Lab Results x24hrs 10/18/18 10/18/18 10/17/18 Range/Units 05:30 05:30 20:03 WBC 11.8 H (4.8-10.8) x10^3/uL RBC 4.32 (4.20-5.40) 10^6/uL Hgb 12.5 (12.0-16.0) g/dL Hct 38.6 (37.0-47.0) % MCV 89.4 (81.0-99.0) fL MCH 29.1 (27.0-31.0) pg MCHC 32.5 (32.0-36.0) g/dL RDW 17.4 H (12.0-15.0) % Plt Count 165 (130-450) 10^3/uL MPV 9.7 (7.9-10.8) fL Neut # (Auto) 9.5 H (1.5-6.6) 10^3/uL Lymph # (Auto) 1.4 L (1.5-3.5) 10^3/uL [place] # (Auto) 0.4 (0.0-1.0) 10^3/uL Eos # (Auto) 0.4 (0.0-0.7) 10^3/uL Baso # (Auto) 0.1 (0.0-0.1) 10^3/uL Absolute Nucleated RBC 0.01 x10^3/uL Nucleated RBC % 0.1 /100WBC PT (9.9-12.6) secs INR (0.8-1.2) APTT (24.9-33.3) secs VBG pH (7.31-7.41) VBG pCO2 (41-51) mmHg VBG pO2 (25-47) mmHg VBG HCO3 (23-28) mmol/L VBG Total CO2 (24-29) mmol/L VBG O2 Saturation (60-80) % VBG Base Excess (-2 - +2) mmol/L Sodium 150 H (135-145) mmol/L Potassium 2.7 L (3.5-5.0) mmol/L Chloride 110 (101-111) mmol/L Carbon Dioxide 24 (21-32) mmol/L Anion Gap 16.0 H (6-13) BUN 125 H* (6-20) mg/dL Creatinine 3.1 H (0.4-1.0) mg/dL Estimated GFR (MDRD) 15 L (>89) Glucose 121 H (70-100) mg/dL Lactic Acid 1.9 (0.5-2.2) mmol/L Calcium 8.6 (8.5-10.3) mg/dL Total Bilirubin 0.7 (0.2-1.0) mg/dL AST 20 (10-42) IU/L ALT 10 (10-60) IU/L Alkaline Phosphatase 77 (42-121) IU/L Ammonia (7-35) umol/L Total Creatine Kinase (22-269) IU/L Troponin I (<0.49) ng/mL B-Natriuretic Peptide (5-100) pg/mL Total Protein 6.1 L (6.7-8.2) g/dL Albumin 2.8 L (3.2-5.5) g/dL Globulin 3.3 (2.1-4.2) g/dL Albumin/Globulin Ratio 0.8 L (1.0-2.2) Lipase (22-51) U/L TSH (0.34-5.60) uIU/mL Free T4 (0.58-1.64) ng/dL Urine Color Urine Clarity (CLEAR) Urine pH (5.0-7.5) PH Ur Specific [place] (1.002-1.030) Urine Protein (NEGATIVE) mg/dL Urine Glucose (UA) (NEGATIVE) mg/dL Urine Ketones (NEGATIVE) mg/dL Urine Occult Blood (NEGATIVE) Urine Nitrite (NEGATIVE) Urine Bilirubin (NEGATIVE) Urine Urobilinogen (NORMAL) E.U./dL Ur Leukocyte Esterase (NEGATIVE) Urine RBC (0-5) /HPF Urine WBC (0-5) /HPF Urine WBC Clumps Ur Squamous Epith Cells (<= Few) Urine Bacteria (None Seen) /HPF Ur Microscopic Review Urine Culture Comments Salicylates mg/dL Urine Opiates Screen (NEGATIVE) Ur Oxycodone Screen (NEGATIVE) Urine Methadone Screen (NEGATIVE) Ur Propoxyphene Screen (NEGATIVE) Acetaminophen (10-30) ug/mL Ur Barbiturates Screen (NEGATIVE) Ur Tricyclics Screen (NEGATIVE) Ur Phencyclidine Scrn (NEGATIVE) Ur Amphetamine Screen (NEGATIVE) U Methamphetamines Scrn (NEGATIVE) U Benzodiazepines Scrn (NEGATIVE) Urine Cocaine Screen (NEGATIVE) U Cannabinoids Screen (NEGATIVE) Ethyl Alcohol mg/dL Serum Ketones (NEGATIVE) 03/15/18 03/15/18 03/15/18 Range/Units 17:54 16:55 16:37 WBC (4.8-10.8) x10^3/uL RBC (4.20-5.40) 10^6/uL Hgb (12.0-16.0) g/dL Hct (37.0-47.0) % MCV (81.0-99.0) fL MCH (27.0-31.0) pg MCHC (32.0-36.0) g/dL RDW (12.0-15.0) % Plt Count (130-450) 10^3/uL MPV (7.9-10.8) fL Neut # (Auto) (1.5-6.6) 10^3/uL Lymph # (Auto) (1.5-3.5) 10^3/uL [place] # (Auto) (0.0-1.0) 10^3/uL Eos # (Auto) (0.0-0.7) 10^3/uL Baso # (Auto) (0.0-0.1) 10^3/uL Absolute Nucleated RBC x10^3/uL Nucleated RBC % /100WBC PT (9.9-12.6) secs INR (0.8-1.2) APTT (24.9-33.3) secs VBG pH 7.486 H (7.31-7.41) VBG pCO2 34.1 L (41-51) mmHg VBG pO2 59.5 H (25-47) mmHg VBG HCO3 25.2 (23-28) mmol/L VBG Total CO2 26.2 (24-29) mmol/L VBG O2 Saturation 89.7 H (60-80) % VBG Base Excess 2.3 H (-2 - +2) mmol/L Sodium (135-145) mmol/L Potassium (3.5-5.0) mmol/L Chloride (101-111) mmol/L Carbon Dioxide (21-32) mmol/L Anion Gap (6-13) BUN (6-20) mg/dL Creatinine (0.4-1.0) mg/dL Estimated GFR (MDRD) (>89) Glucose (70-100) mg/dL Lactic Acid (0.5-2.2) mmol/L Calcium (8.5-10.3) mg/dL Total Bilirubin (0.2-1.0) mg/dL AST (10-42) IU/L ALT (10-60) IU/L Alkaline Phosphatase (42-121) IU/L Ammonia 22.2 (7-35) umol/L Total Creatine Kinase (22-269) IU/L Troponin I (<0.49) ng/mL B-Natriuretic Peptide (5-100) pg/mL Total Protein (6.7-8.2) g/dL Albumin (3.2-5.5) g/dL Globulin (2.1-4.2) g/dL Albumin/Globulin Ratio (1.0-2.2) Lipase (22-51) U/L TSH (0.34-5.60) uIU/mL Free T4 (0.58-1.64) ng/dL Urine Color DARK YELLOW Urine Clarity HAZY (CLEAR) Urine pH 5.5 (5.0-7.5) PH Ur Specific [place] 1.025 (1.002-1.030) Urine Protein TRACE (NEGATIVE) mg/dL Urine Glucose (UA) NEGATIVE (NEGATIVE) mg/dL Urine Ketones NEGATIVE (NEGATIVE) mg/dL Urine Occult Blood MODERATE H (NEGATIVE) Urine Nitrite NEGATIVE (NEGATIVE) Urine Bilirubin NEGATIVE (NEGATIVE) Urine Urobilinogen 0.2 (NORMAL) (NORMAL) E.U./dL Ur Leukocyte Esterase LARGE H (NEGATIVE) Urine RBC 0-5 (0-5) /HPF Urine WBC >25 H (0-5) /HPF Urine WBC Clumps PRESENT Ur Squamous Epith Cells FEW Squamous (<= Few) Urine Bacteria Many H (None Seen) /HPF Ur Microscopic Review INDICATED Urine Culture Comments INDICATED Salicylates mg/dL Urine Opiates Screen NEGATIVE (NEGATIVE) Ur Oxycodone Screen NEGATIVE (NEGATIVE) Urine Methadone Screen NEGATIVE (NEGATIVE) Ur Propoxyphene Screen NEGATIVE (NEGATIVE) Acetaminophen (10-30) ug/mL Ur Barbiturates Screen NEGATIVE (NEGATIVE) Ur Tricyclics Screen NEGATIVE (NEGATIVE) Ur Phencyclidine Scrn NEGATIVE (NEGATIVE) Ur Amphetamine Screen NEGATIVE (NEGATIVE) U Methamphetamines Scrn NEGATIVE (NEGATIVE) U Benzodiazepines Scrn NEGATIVE (NEGATIVE) Urine Cocaine Screen NEGATIVE (NEGATIVE) U Cannabinoids Screen NEGATIVE (NEGATIVE) Ethyl Alcohol mg/dL Serum Ketones (NEGATIVE) 03/15/18 03/15/18 03/15/18 Range/Units 16:37 16:37 16:37 WBC (4.8-10.8) x10^3/uL RBC (4.20-5.40) 10^6/uL Hgb (12.0-16.0) g/dL Hct (37.0-47.0) % MCV (81.0-99.0) fL MCH (27.0-31.0) pg MCHC (32.0-36.0) g/dL RDW (12.0-15.0) % Plt Count (130-450) 10^3/uL MPV (7.9-10.8) fL Neut # (Auto) (1.5-6.6) 10^3/uL Lymph # (Auto) (1.5-3.5) 10^3/uL [place] # (Auto) (0.0-1.0) 10^3/uL Eos # (Auto) (0.0-0.7) 10^3/uL Baso # (Auto) (0.0-0.1) 10^3/uL Absolute Nucleated RBC x10^3/uL Nucleated RBC % /100WBC PT (9.9-12.6) secs INR (0.8-1.2) APTT (24.9-33.3) secs VBG pH (7.31-7.41) VBG pCO2 (41-51) mmHg VBG pO2 (25-47) mmHg VBG HCO3 (23-28) mmol/L VBG Total CO2 (24-29) mmol/L VBG O2 Saturation (60-80) % VBG Base Excess (-2 - +2) mmol/L Sodium (135-145) mmol/L Potassium (3.5-5.0) mmol/L Chloride (101-111) mmol/L Carbon Dioxide (21-32) mmol/L Anion Gap (6-13) BUN (6-20) mg/dL Creatinine (0.4-1.0) mg/dL Estimated GFR (MDRD) (>89) Glucose (70-100) mg/dL Lactic Acid 2.4 H (0.5-2.2) mmol/L Calcium (8.5-10.3) mg/dL Total Bilirubin (0.2-1.0) mg/dL AST (10-42) IU/L ALT (10-60) IU/L Alkaline Phosphatase (42-121) IU/L Ammonia (7-35) umol/L Total Creatine Kinase (22-269) IU/L Troponin I (<0.49) ng/mL B-Natriuretic Peptide 243 H (5-100) pg/mL Total Protein (6.7-8.2) g/dL Albumin (3.2-5.5) g/dL Globulin (2.1-4.2) g/dL Albumin/Globulin Ratio (1.0-2.2) Lipase (22-51) U/L TSH 1.31 (0.34-5.60) uIU/mL Free T4 1.06 (0.58-1.64) ng/dL Urine Color Urine Clarity (CLEAR) Urine pH (5.0-7.5) PH Ur Specific [place] (1.002-1.030) Urine Protein (NEGATIVE) mg/dL Urine Glucose (UA) (NEGATIVE) mg/dL Urine Ketones (NEGATIVE) mg/dL Urine Occult Blood (NEGATIVE) Urine Nitrite (NEGATIVE) Urine Bilirubin (NEGATIVE) Urine Urobilinogen (NORMAL) E.U./dL Ur Leukocyte Esterase (NEGATIVE) Urine RBC (0-5) /HPF Urine WBC (0-5) /HPF Urine WBC Clumps Ur Squamous Epith Cells (<= Few) Urine Bacteria (None Seen) /HPF Ur Microscopic Review Urine Culture Comments Salicylates mg/dL Urine Opiates Screen (NEGATIVE) Ur Oxycodone Screen (NEGATIVE) Urine Methadone Screen (NEGATIVE) Ur Propoxyphene Screen (NEGATIVE) Acetaminophen (10-30) ug/mL Ur Barbiturates Screen (NEGATIVE) Ur Tricyclics Screen (NEGATIVE) Ur Phencyclidine Scrn (NEGATIVE) Ur Amphetamine Screen (NEGATIVE) U Methamphetamines Scrn (NEGATIVE) U Benzodiazepines Scrn (NEGATIVE) Urine Cocaine Screen (NEGATIVE) U Cannabinoids Screen (NEGATIVE) Ethyl Alcohol mg/dL Serum Ketones (NEGATIVE) 10/17/18 10/17/18 10/17/18 Range/Units 16:37 16:37 16:37 WBC (4.8-10.8) x10^3/uL RBC (4.20-5.40) 10^6/uL Hgb (12.0-16.0) g/dL Hct (37.0-47.0) % MCV (81.0-99.0) fL MCH (27.0-31.0) pg MCHC (32.0-36.0) g/dL RDW (12.0-15.0) % Plt Count (130-450) 10^3/uL MPV (7.9-10.8) fL Neut # (Auto) (1.5-6.6) 10^3/uL Lymph # (Auto) (1.5-3.5) 10^3/uL [place] # (Auto) (0.0-1.0) 10^3/uL Eos # (Auto) (0.0-0.7) 10^3/uL Baso # (Auto) (0.0-0.1) 10^3/uL Absolute Nucleated RBC x10^3/uL Nucleated RBC % /100WBC PT 14.1 H (9.9-12.6) secs INR 1.3 H (0.8-1.2) APTT 36.0 H (24.9-33.3) secs VBG pH (7.31-7.41) VBG pCO2 (41-51) mmHg VBG pO2 (25-47) mmHg VBG HCO3 (23-28) mmol/L VBG Total CO2 (24-29) mmol/L VBG O2 Saturation (60-80) % VBG Base Excess (-2 - +2) mmol/L Sodium 155 H* (135-145) mmol/L Potassium 3.0 L (3.5-5.0) mmol/L Chloride 109 (101-111) mmol/L Carbon Dioxide 24 (21-32) mmol/L Anion Gap 22.0 H (6-13) BUN 130 H* (6-20) mg/dL Creatinine 4.0 H (0.4-1.0) mg/dL Estimated GFR (MDRD) 11 L (>89) Glucose 125 H (70-100) mg/dL Lactic Acid (0.5-2.2) mmol/L Calcium 9.9 (8.5-10.3) mg/dL Total Bilirubin 1.2 H (0.2-1.0) mg/dL AST 25 (10-42) IU/L ALT 15 (10-60) IU/L Alkaline Phosphatase 91 (42-121) IU/L Ammonia (7-35) umol/L Total Creatine Kinase 15 L (22-269) IU/L Troponin I 0.11 (<0.49) ng/mL B-Natriuretic Peptide (5-100) pg/mL Total Protein 7.4 (6.7-8.2) g/dL Albumin 3.4 (3.2-5.5) g/dL Globulin 4.0 (2.1-4.2) g/dL Albumin/Globulin Ratio 0.9 L (1.0-2.2) Lipase 74 H (22-51) U/L TSH (0.34-5.60) uIU/mL Free T4 (0.58-1.64) ng/dL Urine Color Urine Clarity (CLEAR) Urine pH (5.0-7.5) PH Ur Specific [place] (1.002-1.030) Urine Protein (NEGATIVE) mg/dL Urine Glucose (UA) (NEGATIVE) mg/dL Urine Ketones (NEGATIVE) mg/dL Urine Occult Blood (NEGATIVE) Urine Nitrite (NEGATIVE) Urine Bilirubin (NEGATIVE) Urine Urobilinogen (NORMAL) E.U./dL Ur Leukocyte Esterase (NEGATIVE) Urine RBC (0-5) /HPF Urine WBC (0-5) /HPF Urine WBC Clumps Ur Squamous Epith Cells (<= Few) Urine Bacteria (None Seen) /HPF Ur Microscopic Review Urine Culture Comments Salicylates < 6.0 mg/dL Urine Opiates Screen (NEGATIVE) Ur Oxycodone Screen (NEGATIVE) Urine Methadone Screen (NEGATIVE) Ur Propoxyphene Screen (NEGATIVE) Acetaminophen < 10 L (10-30) ug/mL Ur Barbiturates Screen (NEGATIVE) Ur Tricyclics Screen (NEGATIVE) Ur Phencyclidine Scrn (NEGATIVE) Ur Amphetamine Screen (NEGATIVE) U Methamphetamines Scrn (NEGATIVE) U Benzodiazepines Scrn (NEGATIVE) Urine Cocaine Screen (NEGATIVE) U Cannabinoids Screen (NEGATIVE) Ethyl Alcohol < 5.0 mg/dL Serum Ketones SMALL H (NEGATIVE) 03/15/18 Range/Units 16:37 WBC 14.3 H (4.8-10.8) x10^3/uL RBC 5.09 (4.20-5.40) 10^6/uL Hgb 14.6 (12.0-16.0) g/dL Hct 46.1 (37.0-47.0) % MCV 90.6 (81.0-99.0) fL MCH 28.6 (27.0-31.0) pg MCHC 31.6 L (32.0-36.0) g/dL RDW 18.1 H (12.0-15.0) % Plt Count 251 (130-450) 10^3/uL MPV 9.5 (7.9-10.8) fL Neut # (Auto) 12.1 H (1.5-6.6) 10^3/uL Lymph # (Auto) 1.2 L (1.5-3.5) 10^3/uL [place] # (Auto) 0.6 (0.0-1.0) 10^3/uL Eos # (Auto) 0.2 (0.0-0.7) 10^3/uL Baso # (Auto) 0.1 (0.0-0.1) 10^3/uL Absolute Nucleated RBC 0.04 x10^3/uL Nucleated RBC % 0.3 /100WBC PT (9.9-12.6) secs INR (0.8-1.2) APTT (24.9-33.3) secs VBG pH (7.31-7.41) VBG pCO2 (41-51) mmHg VBG pO2 (25-47) mmHg VBG HCO3 (23-28) mmol/L VBG Total CO2 (24-29) mmol/L VBG O2 Saturation (60-80) % VBG Base Excess (-2 - +2) mmol/L Sodium (135-145) mmol/L Potassium (3.5-5.0) mmol/L Chloride (101-111) mmol/L Carbon Dioxide (21-32) mmol/L Anion Gap (6-13) BUN (6-20) mg/dL Creatinine (0.4-1.0) mg/dL Estimated GFR (MDRD) (>89) Glucose (70-100) mg/dL Lactic Acid (0.5-2.2) mmol/L Calcium (8.5-10.3) mg/dL Total Bilirubin (0.2-1.0) mg/dL AST (10-42) IU/L ALT (10-60) IU/L Alkaline Phosphatase (42-121) IU/L Ammonia (7-35) umol/L Total Creatine Kinase (22-269) IU/L Troponin I (<0.49) ng/mL B-Natriuretic Peptide (5-100) pg/mL Total Protein (6.7-8.2) g/dL Albumin (3.2-5.5) g/dL Globulin (2.1-4.2) g/dL Albumin/Globulin Ratio (1.0-2.2) Lipase (22-51) U/L TSH (0.34-5.60) uIU/mL Free T4 (0.58-1.64) ng/dL Urine Color Urine Clarity (CLEAR) Urine pH (5.0-7.5) PH Ur Specific [place] (1.002-1.030) Urine Protein (NEGATIVE) mg/dL Urine Glucose (UA) (NEGATIVE) mg/dL Urine Ketones (NEGATIVE) mg/dL Urine Occult Blood (NEGATIVE) Urine Nitrite (NEGATIVE) Urine Bilirubin (NEGATIVE) Urine Urobilinogen (NORMAL) E.U./dL Ur Leukocyte Esterase (NEGATIVE) Urine RBC (0-5) /HPF Urine WBC (0-5) /HPF Urine WBC Clumps Ur Squamous Epith Cells (<= Few) Urine Bacteria (None Seen) /HPF Ur Microscopic Review Urine Culture Comments Salicylates mg/dL Urine Opiates Screen (NEGATIVE) Ur Oxycodone Screen (NEGATIVE) Urine Methadone Screen (NEGATIVE) Ur Propoxyphene Screen (NEGATIVE) Acetaminophen (10-30) ug/mL Ur Barbiturates Screen (NEGATIVE) Ur Tricyclics Screen (NEGATIVE) Ur Phencyclidine Scrn (NEGATIVE) Ur Amphetamine Screen (NEGATIVE) U Methamphetamines Scrn (NEGATIVE) U Benzodiazepines Scrn (NEGATIVE) Urine Cocaine Screen (NEGATIVE) U Cannabinoids Screen (NEGATIVE) Ethyl Alcohol mg/dL Serum Ketones (NEGATIVE) ABX Reporting Has patient been on IV antibiotics over the past 48 hours?: Yes Assessment/Plan - Problem List (1) Severe dehydration Impression: Dehydration is still present. But is slowly improving on physical examination. Turgor of her skin and oral mucosa is improving. Plan: Continue D5. Sodium potassium, BUN, creatinine will continue to be monitored. (2) Hypernatremia Impression: Responding to the D5W. 155 > 150 Plan: Continue D5W until sodium is 145 (3) Acute renal failure superimposed on stage 3 chronic kidney disease Impression: BUN 130, now 125 Creatinine 4.0, now 3.1 Continue to monitor daily. Hopefully her creatinine will return to the baseline of 1.6-1.8 Since her BUN and creatinine are responding, no need for transfer to higher level of care for her kidney failure at this time Qualifiers: Acute renal failure type: unspecified Qualified Code(s): N17.9 - Acute kidney failure, unspecified; N18.3 - Chronic kidney disease, stage 3 (moderate) (4) Fall at home Impression: Last seen by son #1 on Tuesday and spoken to him on Tuesday. She wasn't feeling good with a "bug". She wanted some gatorade. He found some signs of her getting worse. She had spoken to her son #2 and told him she has no food but she did, son #1 keeps her refrigerator stocked. So son #1 went over again and plenty of food in there. He didn't have much room to put groceries in. She is still independent w ADL's. Active and participated in activites. Didn't use a walker or a cane. But there has been a decline for the last 2 months. November went to [place] for a week to visit granddaughter and daughter. Came back and withdrawn, not going out of apartment. Something depressed her. Wears depends and started not changing them for a while, started to smell. Doesn't drive for a over a year. Kicked out bc of smoking in her apartment in [facility] and [facility] is kicking her out for smoking as well. She needs to be out 04/12. She was in the assisted side and [facility] she could smoke out there and not on [place]. But she smoked inside. She was also drinking and driving so both sons took her car. Especially since they would find scratches and dents on it and she didn't know why. He doesn't know how much she's really drinking. He gets it for her. He will even get an extra just in case he can't come over. This last time bought 4 bottles. He hopes to stop buying her alcohol now that she will go thru withdrawal while here. If she needs SNF for physical therapy rehab he is ok with [facility]. She has about 4K coming in w pension and social security. Son #1 is SANGEETHA Rivas [phone]. Qualifiers: Encounter type: initial encounter Qualified Code(s): W19.XXXA - Unspecified fall, initial encounter; Y92.009 - Unspecified place in unspecified non- institutional (private) residence as the place of occurrence of the external cause (5) Alcohol abuse Impression: all of her life. When at [facility] she did go to rehab near [facility] in 2013. Looked great. Mind good. But slowly slid. Drinks (4) 1 liter bottles a week. (6) Urinary tract infection Impression: preliminary culture has GNR. She is on rocephin Day #1. Change to po when appropriate. Qualifiers: Urinary tract infection type: site unspecified Hematuria presence: without hematuria Qualified Code(s): N39.0 - Urinary tract infection, site not specified (7) HTN (hypertension) Impression: She is at goal without meds for now. Continue to monitor while here to see when to resume norvasc. Qualifiers: Hypertension type: essential hypertension Qualified Code(s): I10 - Essential (primary) hypertension (8) Severe protein-calorie malnutrition Impression: She is gone from 69-52 kg and is lost more than 25% of her body weight. On exam she has significant muscle wasting and loss of subcutaneous fat. According to the son's history she has had nutrition intake of less than 50% for probably more than 2 weeks. With this the exam she has significantly reduced functional capacity. Nutrition services is working with the patient. She is already on the banana b ag and I will switch her to p.o. thiamine and folate. I will change her from full liquid diet and advance her diet. (9) Hypokalemia Impression: supplement edison cheng.
[2018-03-16] MEDS: POTASSIUM CHLOR 10 MEQ/100 ML 10 MEQ/100 ML BAG IV SCH ×6 (08:22→13:55)
[2018-03-16] MEDS ORDERED: MAGNESIUM SULFATE 2 GRAM 2 GM/50 ML BAG IV ONE (09:00)
[2018-03-16] MEDS ORDERED: FOLIC ACID IV SCH (09:00)
[2018-03-16] MEDS ORDERED: DEXTROSE 5% IV SCH (09:00)
[2018-03-16] MEDS ORDERED: cefTRIAXone 1 GM in SODIUM CHLORIDE 0.9% MINIBAG 100 ML IV SCH (09:00)
[2018-03-16] MEDS ORDERED: THIAMINE IV SCH (09:00)
[2018-03-16] MEDS ORDERED: MULTIVITAMIN IV SCH (09:00)
[2018-03-16] MEDS: POLYETHYLENE GLYCOL 3350 17 GM PACKET PO SCH (11:33)
[2018-03-16] MEDS: NICOTINE 14 MG PATCH TOP SCH (13:54)
[2018-03-16] MEDS: THIAMINE 100 MG TABLET PO SCH (13:55)
[2018-03-16] MEDS: FOLIC ACID 1 MG TABLET PO SCH (13:55)
[2018-03-16] MEDS: DEXTROSE 5% 1,000 ML IV SCH ×3 (16:17→23:36)
[2018-03-16] MEDS: SACCHAROMYCES BOULARDII 250 MG CAPSULE PO SCH (16:17)
[2018-03-17] MEDS: SODIUM CHLORIDE FLUSH 0.9% 10 ML SYRINGE IVP SCH ×3 (00:12→16:13)
[2018-03-17 05:45] LABS: BASOPHILS % (AUTO) 0.4 %; EOSINOPHILS # (AUTO) 0.2 10^3/uL (0.0-0.7); EOSINOPHILS % (AUTO) 2.7 %; HGB - HEMOGLOBIN 10.7 g/dL (12.0-16.0); LYMPHOCYTES # (AUTO) 1.2 10^3/uL (1.5-3.5); LYMPHOCYTES % (AUTO) 13.2 %; MEAN CORPUSCULAR HEMOGLOBIN 29.6 pg (27.0-31.0); MEAN CORPUSCULAR HGB CONC 33.6 g/dL (32.0-36.0); MEAN PLATELET VOLUME 9.6 fL (7.9-10.8); MONOCYTES # (AUTO) 0.4 10^3/uL (0.0-1.0); MONOCYTES % (AUTO) 4.9 %; NEUTROPHILS # (AUTO) 7.2 10^3/uL (1.5-6.6); NEUTROPHILS % (AUTO) 78.8 %; PLT - PLATELET COUNT 133 10^3/uL (130-450); RED BLOOD COUNT 3.61 10^6/uL (4.20-5.40); RED CELL DISTRIBUTION WIDTH 17.3 % (12.0-15.0); WHITE BLOOD COUNT 9.1 x10^3/uL (4.8-10.8)
[2018-03-17 06:06] LABS: CALCIUM 8.6 mg/dL (8.5-10.3); CREATININE 2.1 mg/dL (0.4-1.0)
[2018-03-17] MEDS: SODIUM CHLORIDE FLUSH 0.9% 10 ML SYRINGE IVP PRN (06:56)
[2018-03-17] MEDS: PANTOPRAZOLE 40 MG VIAL IVP SCH (06:56)
[2018-03-17] MEDS ORDERED: DEXTROSE 5% IV ONE ×4 (08:00)
[2018-03-17] MEDS ORDERED: POTASSIUM CHLORIDE IV ONE ×4 (08:00)
[2018-03-17] MEDS: SACCHAROMYCES BOULARDII 250 MG CAPSULE PO SCH ×2 (08:50→16:38)
[2018-03-17] MEDS: NICOTINE 14 MG PATCH TOP SCH (08:50)
[2018-03-17] MEDS: THIAMINE 100 MG TABLET PO SCH (08:50)
[2018-03-17] MEDS: FOLIC ACID 1 MG TABLET PO SCH (08:51)
[2018-03-17] MEDS: POLYETHYLENE GLYCOL 3350 17 GM PACKET PO SCH (08:51)
[2018-03-17] MEDS: DEXTROSE 5% 1,000 ML IV SCH (08:55)
[2018-03-17] MEDS ORDERED: HYDROmorphone 0.5 MG/0.5 ML SYRINGE IVP PRN (12:24)
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
[2018-03-17] MEDS: POTASSIUM CHLOR 10 MEQ/100 ML 10 MEQ/100 ML BAG IV SCH ×2 (13:30→14:30)
[2018-03-17] MEDS: D5NS W/20 MEQ KCL 1,000 ML IV SCH (13:34)
[2018-03-18] MEDS: SODIUM CHLORIDE FLUSH 0.9% 10 ML SYRINGE IVP SCH ×3 (00:37→15:35)
[2018-03-18] MEDS: D5NS W/20 MEQ KCL 1,000 ML IV SCH ×2 (02:46→15:48)
[2018-03-18 04:14] LABS: BASOPHILS # (AUTO) 0.1 10^3/uL (0.0-0.1); BASOPHILS % (AUTO) 0.6 %; EOSINOPHILS # (AUTO) 0.2 10^3/uL (0.0-0.7); EOSINOPHILS % (AUTO) 2.4 %; HGB - HEMOGLOBIN 11.1 g/dL (12.0-16.0); MEAN CORPUSCULAR HEMOGLOBIN 29.4 pg (27.0-31.0); MEAN CORPUSCULAR HGB CONC 33.3 g/dL (32.0-36.0); MEAN CORPUSCULAR VOLUME 88.4 fL (81.0-99.0); MEAN PLATELET VOLUME 9.6 fL (7.9-10.8); MONOCYTES # (AUTO) 0.5 10^3/uL (0.0-1.0); MONOCYTES % (AUTO) 6.6 %; NEUTROPHILS # (AUTO) 6.5 10^3/uL (1.5-6.6); NEUTROPHILS % (AUTO) 78.4 %; PLT - PLATELET COUNT 132 10^3/uL (130-450); RED BLOOD COUNT 3.78 10^6/uL (4.20-5.40); RED CELL DISTRIBUTION WIDTH 17.1 % (12.0-15.0); WHITE BLOOD COUNT 8.3 x10^3/uL (4.8-10.8)
[2018-03-18] MEDS: SODIUM CHLORIDE FLUSH 0.9% 10 ML SYRINGE IVP PRN ×2 (06:08→10:15)
[2018-03-18] MEDS: PANTOPRAZOLE 40 MG VIAL IVP SCH (06:08)
[2018-03-18 06:50] LABS: CALCIUM 8.6 mg/dL (8.5-10.3); CREATININE 1.7 mg/dL (0.4-1.0)
[2018-03-18] MEDS: POLYETHYLENE GLYCOL 3350 17 GM PACKET PO SCH (07:29)
[2018-03-18] MEDS: THIAMINE 100 MG TABLET PO SCH (08:30)
[2018-03-18] MEDS: FOLIC ACID 1 MG TABLET PO SCH (08:30)
[2018-03-18] MEDS: NICOTINE 14 MG PATCH TOP SCH (08:30)
[2018-03-18] MEDS: SACCHAROMYCES BOULARDII 250 MG CAPSULE PO SCH ×2 (08:30→15:50)
[2018-03-18] MEDS: LORazepam 2 MG/ML VIAL IVP PRN (10:15)
--- NOTE | 2018-03-18 15:02 | PROVIDER PROGRESS NOTE ---
Assessment/Plan - Problem List (1) Acute confusional state Assessment/Plan: Patient may be going thru alcohol withdrawal and was given Ativan per [facility] protocol this am. She has the smell of alcohol and possibly a liver flap. Will check an ammonia level and follow if elevated, and start lactulose. (2) Hypotension Assessment/Plan: Improved with hydration. (3) Acute renal failure Qualifiers: Acute renal failure type: unspecified Qualified Code(s): N17.9 - Acute kidney failure, unspecified Assessment/Plan: Slow improvement with BUN/creat to 65/1.7 Continue rehydration iv and po. (4) Alcohol abuse Assessment/Plan: As in #1 Continue Thiamine and Folate. (5) Severe protein-calorie malnutrition Assessment/Plan: Pt has intermittent appetite. Continue supplements and Thiamine and Folate. (6) UTI due to Klebsiella species Assessment/Plan: Will transition iv ceftriaxone to po Cipro, based on Klebs sensitivities. Will plan a 7-10 day total course of antibiotics. - Current Meds Current Meds: Current Medications Generic Name Dose Route Start Last Admin Trade Name Freq PRN Reason Stop Dose Admin Folic Acid 1 mg 03/16/18 14:00 03/18/18 08:30 PO 1 mg DAILY JAKUB Administration Ceftriaxone Sodium 1 gm/ 100 mls @ 200 mls/hr 03/16/18 09:00 03/18/18 09:05 Dextrose IV Infused DAILY JAKUB Infusion Potassium Chloride/Dextrose/Sod Cl 1,000 mls @ 83.333 mls/hr 03/17/18 13:00 03/18/18 02:46 IV 83.333 mls/hr .Q12H JAKUB Administration Lorazepam 1 mg 03/18/18 06:32 03/18/18 10:15 Ativan Inj (Vial) IVP 1 mg Q30M PRN Administration CIWA >8 Protocol Nicotine 1 patch 03/16/18 14:00 03/18/18 08:30 Nicoderm TOP 1 patch DAILY JAKUB Administration Pantoprazole Sodium 40 mg 03/15/18 20:00 03/18/18 06:08 Protonix IVP 40 mg QDAC JAKUB Administration Polyethylene Glycol 17 gm 03/16/18 09:00 03/18/18 07:29 Miralax PO Not Given DAILY JAKUB Saccharomyces Boulardii 250 mg 03/16/18 17:00 03/18/18 08:30 Florastor PO 250 mg BIDWM JAKUB Administration Sodium Chloride 10 ml 03/15/18 17:35 03/18/18 10:15 Normal Saline Flush 0.9% IVP 10 ml PRN PRN Administration NEEDED PER PROVIDER ORDERS Sodium Chloride 10 ml 03/16/18 01:00 03/18/18 07:29 Normal Saline Flush 0.9% IVP Not Given 0100,0900,1700 JAKUB Thiamine HCl 100 mg 03/16/18 14:00 03/18/18 08:30 Vitamin B-1 PO 100 mg DAILY JAKUB Administration - Lab Result Fish Bone Diagrams: 03/18/18 04:05 03/18/18 04:05 - Additional Planning My Orders: My Active Orders 03/18/18 06:00 AMMONIA [CHEM] Routine Subjective - Subjective Nursing Reports: Confused, Other (Not coherent after Ativan given for CIWA channing of 12 this am) Objective Vital Signs: Vital Signs - 24 hr 03/17/18 03/17/18 03/18/18 15:23 21:00 00:10 Temperature 36.7 C 36.4 C L 36.4 C L Heart Rate [ 88 58 L 73 Brachial] Respiratory 16 18 16 Rate Blood Pressure 95/59 L 95/57 L 98/63 [Right Brachial artery] O2 Saturation 99 98 100 03/18/18 03/18/18 03/18/18 04:05 08:10 13:00 Temperature 36.7 C 36.4 C L 36.4 C L Heart Rate [ 77 71 83 Brachial] Respiratory 18 18 18 Rate Blood Pressure 113/59 L 105/83 H 123/79 [Right Brachial artery] O2 Saturation 97 99 94 Oxygen O2 Source Room air I&O (Last 24 Hrs): Intake and Output Totals x24h 03/16/18 03/17/18 03/18/18 23:59 23:59 23:59 Intake Total 4067.033 2190.417 1410 Output Total 700 1425 1100 Balance 3367.033 765.417 310 General: Other (Appears fidgety, glassy eyed) HEENT: Mucous membr. moist/pink Neck: Supple, No JVD Neuro: Other (Oriented x 0, repeating what she hears said around her) Cardiovascular: Regular rate, No murmurs Respiratory: No respiratory distress, Breath sounds nml Abdomen: Soft, No tenderness Extremities: No clubbing, No edema ((+) skin tentinh) - Results Results: Laboratory Results WBC 8.3 x10^3/uL (4.8-10.8) 03/18/18 04:05 RBC 3.78 10^6/uL (4.20-5.40) L 03/18/18 04:05 Hgb 11.1 g/dL (12.0-16.0) L 03/18/18 04:05 Hct 33.4 % (37.0-47.0) L 03/18/18 04:05 MCV 88.4 fL (81.0-99.0) 03/18/18 04:05 MCH 29.4 pg (27.0-31.0) 03/18/18 04:05 MCHC 33.3 g/dL (32.0-36.0) 03/18/18 04:05 RDW 17.1 % (12.0-15.0) H 03/18/18 04:05 Plt Count 132 10^3/uL (130-450) 03/18/18 04:05 MPV 9.6 fL (7.9-10.8) 03/18/18 04:05 Neut # (Auto) 6.5 10^3/uL (1.5-6.6) 03/18/18 04:05 Lymph # (Auto) 1.0 10^3/uL (1.5-3.5) L 03/18/18 04:05 [place] # (Auto) 0.5 10^3/uL (0.0-1.0) 03/18/18 04:05 Eos # (Auto) 0.2 10^3/uL (0.0-0.7) 03/18/18 04:05 Baso # (Auto) 0.1 10^3/uL (0.0-0.1) 03/18/18 04:05 Absolute Nucleated RBC 0.00 x10^3/uL 03/18/18 04:05 Nucleated RBC % 0.0 /100WBC 03/18/18 04:05 PT 14.1 secs (9.9-12.6) H 03/15/18 16:37 INR 1.3 (0.8-1.2) H 03/15/18 16:37 APTT 36.0 secs (24.9-33.3) H 03/15/18 16:37 VBG pH 7.486 (7.31-7.41) H 03/15/18 16:37 VBG pCO2 34.1 mmHg (41-51) L 03/15/18 16:37 VBG pO2 59.5 mmHg (25-47) H 03/15/18 16:37 VBG HCO3 25.2 mmol/L (23-28) 03/15/18 16:37 VBG Total CO2 26.2 mmol/L (24-29) 03/15/18 16:37 VBG O2 Saturation 89.7 % (60-80) H 03/15/18 16:37 VBG Base Excess 2.3 mmol/L (-2 - +2) H 03/15/18 16:37 Sodium 144 mmol/L (135-145) 03/18/18 04:05 Potassium 3.6 mmol/L (3.5-5.0) 03/18/18 04:05 Chloride 112 mmol/L (101-111) H 03/18/18 04:05 Carbon Dioxide 21 mmol/L (21-32) 03/18/18 04:05 Anion Gap 11.0 (6-13) 03/18/18 04:05 BUN 65 mg/dL (6-20) H 03/18/18 04:05 Creatinine 1.7 mg/dL (0.4-1.0) H 03/18/18 04:05 Estimated GFR (MDRD) 29 (>89) L 03/18/18 04:05 Glucose 104 mg/dL (70-100) H 03/18/18 04:05 Lactic Acid 1.9 mmol/L (0.5-2.2) 03/15/18 20:03 Calcium 8.6 mg/dL (8.5-10.3) 03/18/18 04:05 Phosphorus 3.0 mg/dL (2.5-4.6) 03/16/18 05:30 Magnesium 2.0 mg/dL (1.7-2.8) 03/16/18 05:30 Total Bilirubin 0.7 mg/dL (0.2-1.0) 03/16/18 05:30 AST 20 IU/L (10-42) 03/16/18 05:30 ALT 10 IU/L (10-60) 03/16/18 05:30 Alkaline Phosphatase 77 IU/L (42-121) 03/16/18 05:30 Ammonia 22.2 umol/L (7-35) 03/15/18 17:54 Total Creatine Kinase 15 IU/L (22-269) L 03/15/18 16:37 Troponin I 0.11 ng/mL (<0.49) 03/15/18 16:37 B-Natriuretic Peptide 243 pg/mL (5-100) H 03/15/18 16:37 Total Protein 6.1 g/dL (6.7-8.2) L 03/16/18 05:30 Albumin 2.8 g/dL (3.2-5.5) L 03/16/18 05:30 Globulin 3.3 g/dL (2.1-4.2) 03/16/18 05:30 Albumin/Globulin Ratio 0.8 (1.0-2.2) L 03/16/18 05:30 Lipase 74 U/L (22-51) H 03/15/18 16:37 TSH 1.31 uIU/mL (0.34-5.60) 03/15/18 16:37 Free T4 1.06 ng/dL (0.58-1.64) 03/15/18 16:37 Urine Color DARK YELLOW 03/15/18 16:55 Urine Clarity HAZY (CLEAR) 03/15/18 16:55 Urine pH 5.5 PH (5.0-7.5) 03/15/18 16:55 Ur Specific [place] 1.025 (1.002-1.030) 03/15/18 16:55 Urine Protein TRACE mg/dL (NEGATIVE) 03/15/18 16:55 Urine Glucose (UA) NEGATIVE mg/dL (NEGATIVE) 03/15/18 16:55 Urine Ketones NEGATIVE mg/dL (NEGATIVE) 03/15/18 16:55 Urine Occult Blood MODERATE (NEGATIVE) H 03/15/18 16:55 Urine Nitrite NEGATIVE (NEGATIVE) 03/15/18 16:55 Urine Bilirubin NEGATIVE (NEGATIVE) 03/15/18 16:55 Urine Urobilinogen 0.2 (NORMAL) E.U./dL (NORMAL) 03/15/18 16:55 Ur Leukocyte Esterase LARGE (NEGATIVE) H 03/15/18 16:55 Urine RBC 0-5 /HPF (0-5) 03/15/18 16:55 Urine WBC >25 /HPF (0-5) H 03/15/18 16:55 Urine WBC Clumps PRESENT 03/15/18 16:55 Ur Squamous Epith Cells FEW Squamous (<= Few) 03/15/18 16:55 Urine Bacteria Many /HPF (None Seen) H 03/15/18 16:55 Ur Microscopic Review INDICATED 03/15/18 16:55 Urine Culture Comments INDICATED 03/15/18 16:55 Salicylates < 6.0 mg/dL 03/15/18 16:37 Urine Opiates Screen NEGATIVE (NEGATIVE) 03/15/18 16:55 Ur Oxycodone Screen NEGATIVE (NEGATIVE) 03/15/18 16:55 Urine Methadone Screen NEGATIVE (NEGATIVE) 03/15/18 16:55 Ur Propoxyphene Screen NEGATIVE (NEGATIVE) 03/15/18 16:55 Acetaminophen < 10 ug/mL (10-30) L 03/15/18 16:37 Ur Barbiturates Screen NEGATIVE (NEGATIVE) 03/15/18 16:55 Ur Tricyclics Screen NEGATIVE (NEGATIVE) 03/15/18 16:55 Ur Phencyclidine Scrn NEGATIVE (NEGATIVE) 03/15/18 16:55 Ur Amphetamine Screen NEGATIVE (NEGATIVE) 03/15/18 16:55 U Methamphetamines Scrn NEGATIVE (NEGATIVE) 03/15/18 16:55 U Benzodiazepines Scrn NEGATIVE (NEGATIVE) 03/15/18 16:55 Urine Cocaine Screen NEGATIVE (NEGATIVE) 03/15/18 16:55 U Cannabinoids Screen NEGATIVE (NEGATIVE) 03/15/18 16:55 Ethyl Alcohol < 5.0 mg/dL 03/15/18 16:37 Serum Ketones SMALL (NEGATIVE) H 03/15/18 16:37
[2018-03-18] MEDS: CIPROFLOXACIN 250 MG TABLET PO SCH (21:50)
[2018-03-19] MEDS: SODIUM CHLORIDE FLUSH 0.9% 10 ML SYRINGE IVP SCH ×3 (00:30→15:27)
[2018-03-19] MEDS: D5NS W/20 MEQ KCL 1,000 ML IV SCH ×2 (03:55→16:01)
[2018-03-19] MEDS: PANTOPRAZOLE 40 MG VIAL IVP SCH (06:13)
[2018-03-19] MEDS: SODIUM CHLORIDE FLUSH 0.9% 10 ML SYRINGE IVP PRN (06:13)
[2018-03-19 06:55] LABS: CALCIUM 8.1 mg/dL (8.5-10.3); CREATININE 1.3 mg/dL (0.4-1.0)
[2018-03-19] MEDS: NICOTINE 14 MG PATCH TOP SCH (08:08)
[2018-03-19] MEDS: POLYETHYLENE GLYCOL 3350 17 GM PACKET PO SCH (08:08)
[2018-03-19] MEDS: CIPROFLOXACIN 250 MG TABLET PO SCH ×2 (08:08→20:28)
[2018-03-19] MEDS: SACCHAROMYCES BOULARDII 250 MG CAPSULE PO SCH ×2 (08:08→16:02)
[2018-03-19] MEDS: FOLIC ACID 1 MG TABLET PO SCH (08:08)
[2018-03-19] MEDS: THIAMINE 100 MG TABLET PO SCH (08:09)
--- NOTE | 2018-03-19 18:51 | PROVIDER PROGRESS NOTE ---
Assessment/Plan - Problem List (1) Diarrhea Assessment/Plan: Will obtain C.diff PCR eval. If neg for C.diff, will add Imodium (2) Acute confusional state Assessment/Plan: She is sleeping currently, she needs Ativan due to signs of alcohol withdrawal. Continue CIWA protocol. (3) Hypotension Assessment/Plan: Continue to hold Amlodipine. Hydrate. (4) Acute renal failure Qualifiers: Acute renal failure type: unspecified Qualified Code(s): N17.9 - Acute k idney failure, unspecified Assessment/Plan: Slow improvement in BUN/creat with volume replacement. Monitor BMP daily. (5) Alcohol abuse Assessment/Plan: She had no drug levels measured at admission, since it was thought that she was "down" for 3 days. Since there were no signs of rhabdo at admission, she was probably awake and c onsuming alcohol up until admission. Today is day 3-4 and she is probably going thruu withdrawal. Continue prn Ativan and CIWA protocol. (6) Severe protein-calorie malnutrition Assessment/Plan: Supplements ordered. Advance diet as tolerated, when she awakens more. (7) UTI due to Klebsiella species Assessment/Plan: ID of urine culture shows Klebs and she is on Cipro, to which this species has good sensitivity. Consider transitioning to po Cipro when she is more awake and will reliably take po meds. - Current Meds Current Meds: Current Medications Generic Name Dose Route Start Last Admin Trade Name Freq PRN Reason Stop Dose Admin Ciprofloxacin 250 mg 03/18/18 21:00 03/19/18 08:08 Cipro PO 250 mg BID JAKUB Administration Folic Acid 1 mg 03/16/18 14:00 03/19/18 08:08 PO 1 mg DAILY JAKUB Administration Potassium Chloride/Dextrose/Sod Cl 1,000 mls @ 83.333 mls/hr 03/17/18 13:00 03/19/18 16:01 IV 83.3 mls/hr .Q12H JAKUB Administration Lorazepam 1 mg 03/18/18 06:32 03/18/18 10:15 Ativan Inj (Vial) IVP 1 mg Q30M PRN Administration CIWA >8 Protocol Nicotine 1 patch 03/16/18 14:00 03/19/18 08:08 Nicoderm TOP 1 patch DAILY JAKUB Administration Pantoprazole Sodium 40 mg 03/15/18 20:00 03/19/18 06:13 Protonix IVP 40 mg QDAC JAKUB Administration Polyethylene Glycol 17 gm 03/16/18 09:00 03/19/18 08:08 Miralax PO Not Given DAILY JAKUB Saccharomyces Boulardii 250 mg 03/16/18 17:00 03/19/18 16:02 Florastor PO 250 mg BIDWM JAKUB Administration Sodium Chloride 10 ml 03/15/18 17:35 03/19/18 06:13 Normal Saline Flush 0.9% IVP 10 ml PRN PRN Administration NEEDED PER PROVIDER ORDERS Sodium Chloride 10 ml 03/16/18 01:00 03/19/18 15:27 Normal Saline Flush 0.9% IVP Not Given 0100,0900,1700 JAKUB Thiamine HCl 100 mg 03/16/18 14:00 03/19/18 08:09 Vitamin B-1 PO 100 mg DAILY JAKUB Administration - Lab Result Fish Bone Diagrams: 03/20/18 09:40 03/20/18 09:40 - Additional Planning My Orders: My Active Orders 03/18/18 21:00 Ciprofloxacin [Cipro] 250 mg PO BID 03/19/18 C. DIFF BY PCR [RAPID] Urgent Subjective - Subjective Patient Reports: Other (Sleeping) Nursing Reports: Other (3 watery BMs today) Objective Vital Signs: Vital Signs - 24 hr 03/18/18 03/18/18 03/19/18 20:24 23:46 05:00 Temperature 36.4 C L 36.6 C 36.8 C Heart Rate [ 83 69 76 Brachial] Respiratory 20 18 18 Rate Blood Pressure 125/94 H 128/70 133/89 H [Right Brachial artery] O2 Saturation 98 98 98 03/19/18 03/19/18 03/19/18 07:34 12:34 13:26 Temperature 36.7 C 36.7 C 36.5 C Heart Rate [ 73 81 92 Brachial] Respiratory 17 18 18 Rate Blood Pressure 123/46 L 115/70 106/66 [Right Brachial artery] O2 Saturation 100 99 98 03/19/18 15:40 Temperature 36.7 C Heart Rate [ 71 Brachial] Respiratory 20 Rate Blood Pressure 125/65 [Right Brachial artery] O2 Saturation 98 Oxygen O2 Source Room air I&O (Last 24 Hrs): Intake and Output Totals x24h 1003/18/18 03/19/18 23:59 23:59 23:59 Intake Total 2190.417 2900 2470 Output Total 1425 1375 650 Balance 202.334 8352 1820 HEENT: Mucous membr. moist/pink Neck: Supple Neuro: Other (Lethargic.) Cardiovascular: Regular rate, No murmurs Respiratory: No respiratory distress, Breath sounds nml Abdomen: Soft Extremities: No edema - Results Results: Laboratory Results WBC 8.3 x10^3/uL (4.8-10.8) 03/18/18 04:05 RBC 3.78 10^6/uL (4.20-5.40) L 03/18/18 04:05 Hgb 11.1 g/dL (12.0-16.0) L 03/18/18 04:05 Hct 33.4 % (37.0-47.0) L 03/18/18 04:05 MCV 88.4 fL (81.0-99.0) 03/18/18 04:05 MCH 29.4 pg (27.0-31.0) 03/18/18 04:05 MCHC 33.3 g/dL (32.0-36.0) 03/18/18 04:05 RDW 17.1 % (12.0-15.0) H 03/18/18 04:05 Plt Count 132 10^3/uL (130-450) 03/18/18 04:05 MPV 9.6 fL (7.9-10.8) 03/18/18 04:05 Neut # (Auto) 6.5 10^3/uL (1.5-6.6) 03/18/18 04:05 Lymph # (Auto) 1.0 10^3/uL (1.5-3.5) L 03/18/18 04:05 [place] # (Auto) 0.5 10^3/uL (0.0-1.0) 03/18/18 04:05 Eos # (Auto) 0.2 10^3/uL (0.0-0.7) 03/18/18 04:05 Baso # (Auto) 0.1 10^3/uL (0.0-0.1) 03/18/18 04:05 Absolute Nucleated RBC 0.00 x10^3/uL 03/18/18 04:05 Nucleated RBC % 0.0 /100WBC 03/18/18 04:05 PT 14.1 secs (9.9-12.6) H 03/15/18 16:37 INR 1.3 (0.8-1.2) H 03/15/18 16:37 APTT 36.0 secs (24.9-33.3) H 03/15/18 16:37 VBG pH 7.486 (7.31-7.41) H 03/15/18 16:37 VBG pCO2 34.1 mmHg (41-51) L 03/15/18 16:37 VBG pO2 59.5 mmHg (25-47) H 03/15/18 16:37 VBG HCO3 25.2 mmol/L (23-28) 03/15/18 16:37 VBG Total CO2 26.2 mmol/L (24-29) 03/15/18 16:37 VBG O2 Saturation 89.7 % (60-80) H 03/15/18 16:37 VBG Base Excess 2.3 mmol/L (-2 - +2) H 03/15/18 16:37 Sodium 144 mmol/L (135-145) 03/19/18 06:05 Potassium 4.0 mmol/L (3.5-5.0) 03/19/18 06:05 Chloride 117 mmol/L (101-111) H 03/19/18 06:05 Carbon Dioxide 20 mmol/L (21-32) L 03/19/18 06:05 Anion Gap 7.0 (6-13) 03/19/18 06:05 BUN 39 mg/dL (6-20) H 03/19/18 06:05 Creatinine 1.3 mg/dL (0.4-1.0) H 03/19/18 06:05 Estimated GFR (MDRD) 40 (>89) L 03/19/18 06:05 Glucose 97 mg/dL (70-100) 03/19/18 06:05 Lactic Acid 1.9 mmol/L (0.5-2.2) 03/15/18 20:03 Calcium 8.1 mg/dL (8.5-10.3) L 03/19/18 06:05 Phosphorus 3.0 mg/dL (2.5-4.6) 03/16/18 05:30 Magnesium 2.0 mg/dL (1.7-2.8) 03/16/18 05:30 Total Bilirubin 0.7 mg/dL (0.2-1.0) 03/16/18 05:30 AST 20 IU/L (10-42) 03/16/18 05:30 ALT 10 IU/L (10-60) 03/16/18 05:30 Alkaline Phosphatase 77 IU/L (42-121) 03/16/18 05:30 Ammonia 19.7 umol/L (7-35) 03/18/18 15:20 Total Creatine Kinase 15 IU/L (22-269) L 03/15/18 16:37 Troponin I 0.11 ng/mL (<0.49) 03/15/18 16:37 B-Natriuretic Peptide 243 pg/mL (5-100) H 03/15/18 16:37 Total Protein 6.1 g/dL (6.7-8.2) L 03/16/18 05:30 Albumin 2.8 g/dL (3.2-5.5) L 03/16/18 05:30 Globulin 3.3 g/dL (2.1-4.2) 03/16/18 05:30 Albumin/Globulin Ratio 0.8 (1.0-2.2) L 03/16/18 05:30 Lipase 74 U/L (22-51) H 03/15/18 16:37 TSH 1.31 uIU/mL (0.34-5.60) 03/15/18 16:37 Free T4 1.06 ng/dL (0.58-1.64) 03/15/18 16:37 Urine Color DARK YELLOW 03/15/18 16:55 Urine Clarity HAZY (CLEAR) 03/15/18 16:55 Urine pH 5.5 PH (5.0-7.5) 03/15/18 16:55 Ur Specific [place] 1.025 (1.002-1.030) 03/15/18 16:55 Urine Protein TRACE mg/dL (NEGATIVE) 03/15/18 16:55 Urine Glucose (UA) NEGATIVE mg/dL (NEGATIVE) 03/15/18 16:55 Urine Ketones NEGATIVE mg/dL (NEGATIVE) 10/17/18 16:55 Urine Occult Blood MODERATE (NEGATIVE) H 03/15/18 16:55 Urine Nitrite NEGATIVE (NEGATIVE) 03/15/18 16:55 Urine Bilirubin NEGATIVE (NEGATIVE) 03/15/18 16:55 Urine Urobilinogen 0.2 (NORMAL) E.U./dL (NORMAL) 03/15/18 16:55 Ur Leukocyte Esterase LARGE (NEGATIVE) H 03/15/18 16:55 Urine RBC 0-5 /HPF (0-5) 03/15/18 16:55 Urine WBC >25 /HPF (0-5) H 03/15/18 16:55 Urine WBC Clumps PRESENT 03/15/18 16:55 Ur Squamous Epith Cells FEW Squamous (<= Few) 03/15/18 16:55 Urine Bacteria Many /HPF (None Seen) H 03/15/18 16:55 Ur Microscopic Review INDICATED 03/15/18 16:55 Urine Culture Comments INDICATED 03/15/18 16:55 Salicylates < 6.0 mg/dL 03/15/18 16:37 Urine Opiates Screen NEGATIVE (NEGATIVE) 03/15/18 16:55 Ur Oxycodone Screen NEGATIVE (NEGATIVE) 03/15/18 16:55 Urine Methadone Screen NEGATIVE (NEGATIVE) 03/15/18 16:55 Ur Propoxyphene Screen NEGATIVE (NEGATIVE) 03/15/18 16:55 Acetaminophen < 10 ug/mL (10-30) L 03/15/18 16:37 Ur Barbiturates Screen NEGATIVE (NEGATIVE) 03/15/18 16:55 Ur Tricyclics Screen NEGATIVE (NEGATIVE) 03/15/18 16:55 Ur Phencyclidine Scrn NEGATIVE (NEGATIVE) 03/15/18 16:55 Ur Amphetamine Screen NEGATIVE (NEGATIVE) 03/15/18 16:55 U Methamphetamines Scrn NEGATIVE (NEGATIVE) 03/15/18 16:55 U Benzodiazepines Scrn NEGATIVE (NEGATIVE) 03/15/18 16:55 Urine Cocaine Screen NEGATIVE (NEGATIVE) 03/15/18 16:55 U Cannabinoids Screen NEGATIVE (NEGATIVE) 03/15/18 16:55 Ethyl Alcohol < 5.0 mg/dL 03/15/18 16:37 Serum Ketones SMALL (NEGATIVE) H 03/15/18 16:37
[2018-03-20] MEDS: SODIUM CHLORIDE FLUSH 0.9% 10 ML SYRINGE IVP SCH ×3 (03:01→17:36)
[2018-03-20] MEDS: D5NS W/20 MEQ KCL 1,000 ML IV SCH ×2 (03:38→18:12)
[2018-03-20] MEDS: PANTOPRAZOLE 40 MG VIAL IVP SCH (07:27)
[2018-03-20] MEDS: SODIUM CHLORIDE FLUSH 0.9% 10 ML SYRINGE IVP PRN ×2 (07:34→14:22)
[2018-03-20] MEDS: SACCHAROMYCES BOULARDII 250 MG CAPSULE PO SCH ×2 (08:11→17:36)
[2018-03-20] MEDS: CIPROFLOXACIN 250 MG TABLET PO SCH ×2 (08:11→22:12)
[2018-03-20] MEDS: FOLIC ACID 1 MG TABLET PO SCH (08:11)
[2018-03-20] MEDS: NICOTINE 14 MG PATCH TOP SCH (08:11)
[2018-03-20] MEDS: THIAMINE 100 MG TABLET PO SCH (08:12)
[2018-03-20] MEDS: POLYETHYLENE GLYCOL 3350 17 GM PACKET PO SCH (08:12)
[2018-03-20 09:47] LABS: BASOPHILS # (AUTO) 0.1 10^3/uL (0.0-0.1); BASOPHILS % (AUTO) 0.8 %; EOSINOPHILS # (AUTO) 0.3 10^3/uL (0.0-0.7); EOSINOPHILS % (AUTO) 3.7 %; HGB - HEMOGLOBIN 10.5 g/dL (12.0-16.0); LYMPHOCYTES # (AUTO) 1.3 10^3/uL (1.5-3.5); LYMPHOCYTES % (AUTO) 14.6 %; MEAN CORPUSCULAR HEMOGLOBIN 29.5 pg (27.0-31.0); MEAN CORPUSCULAR HGB CONC 33.3 g/dL (32.0-36.0); MEAN CORPUSCULAR VOLUME 88.4 fL (81.0-99.0); MEAN PLATELET VOLUME 9.7 fL (7.9-10.8); MONOCYTES # (AUTO) 0.8 10^3/uL (0.0-1.0); MONOCYTES % (AUTO) 8.5 %; NEUTROPHILS # (AUTO) 6.7 10^3/uL (1.5-6.6); NEUTROPHILS % (AUTO) 72.4 %; PLT - PLATELET COUNT 180 10^3/uL (130-450); RED BLOOD COUNT 3.58 10^6/uL (4.20-5.40); RED CELL DISTRIBUTION WIDTH 17.8 % (12.0-15.0); WHITE BLOOD COUNT 9.2 x10^3/uL (4.8-10.8)
[2018-03-20 10:00] LABS: CALCIUM 8.5 mg/dL (8.5-10.3); CREATININE 1.1 mg/dL (0.4-1.0)
[2018-03-20] MEDS: LORazepam 2 MG/ML VIAL IVP PRN ×2 (14:12→14:42)
--- NOTE | 2018-03-20 16:51 | PROVIDER PROGRESS NOTE ---
Assessment/Plan - Problem List (1) Acute confusional state Assessment/Plan: She was only oriented to self, was confabulating, thought she was "in a house, waiting for a cart". This mental ststus appears to wax nd wane. I suspect she has underlying dementia or Wernicke's encephalopathy. Continue CIWA protocol, cueing and supportive care. (2) Hypotension Assessment/Plan: This has resolved as she awakens and is more agitated or confused, Will resume her BP meds slowly. (3) Acute renal failure Qualifiers: Acute renal failure type: unspecified Qualified Code(s): N17.9 - Acute kidney failure, unspecified Assessment/Plan: Improve with iv hydration. Continue po hydration. Will DC [place]. Will resume her Detrol LA. Monitor daily BMP. (4) Alcohol abuse Assessment/Plan: Pt probably had withdrawal while here. Continue CIWA protocol and Ativan. Nutrition has advised supplements for alcoholic pt, will order. (5) Severe protein-calorie malnutrition Assessment/Plan: Supplements ordered. Will advance her diet since N?V have resolved. (6) UTI due to Klebsiella species Assessment/Plan: Pt on iv Cipro. Continue for a 7 day course. (7) Diarrhea Assessment/Plan: This has decreased. C.diff was neg - Current Meds Current Meds: Current Medications Generic Name Dose Route Start Last Admin Trade Name Freq PRN Reason Stop Dose Admin Ciprofloxacin 250 mg 03/18/18 21:00 03/20/18 08:11 Cipro PO 250 mg BID JAKUB Administration Folic Acid 1 mg 03/16/18 14:00 03/20/18 08:11 PO 1 mg DAILY JAKUB Administration Potassium Chloride/Dextrose/Sod Cl 1,000 mls @ 83.333 mls/hr 03/17/18 13:00 03/20/18 08:10 IV 83.3 mls/hr .Q12H JAKUB Infusion Lorazepam 1 mg 03/18/18 06:32 03/20/18 14:42 Ativan Inj (Vial) IVP 1 mg Q30M PRN Administration CIWA >8 Protocol Nicotine 1 patch 03/16/18 14:00 03/20/18 08:11 Nicoderm TOP 1 patch DAILY JAKUB Administration Pantoprazole Sodium 40 mg 03/15/18 20:00 03/20/18 07:27 Protonix IVP 40 mg QDAC JAKUB Administration Polyethylene Glycol 17 gm 03/16/18 09:00 03/20/18 08:12 Miralax PO Not Given DAILY JAKUB Saccharomyces Boulardii 250 mg 03/16/18 17:00 03/20/18 08:11 Florastor PO 250 mg BIDWM JAKUB Administration Sodium Chloride 10 ml 03/15/18 17:35 03/20/18 14:22 Normal Saline Flush 0.9% IVP 10 ml PRN PRN Administration NEEDED PER PROVIDER ORDERS Sodium Chloride 10 ml 03/16/18 01:00 03/20/18 08:12 Normal Saline Flush 0.9% IVP Not Given 0100,0900,1700 JAKUB Thiamine HCl 100 mg 03/16/18 14:00 03/20/18 08:12 Vitamin B-1 PO 100 mg DAILY JAKUB Administration - Lab Result Fish Bone Diagrams: 03/20/18 09:40 03/20/18 09:40 - Additional Planning My Orders: My Active Orders 03/21/18 05:00 AMMONIA [CHEM] Routine CBC - COMP BLD CT W/AUTO DIFF [HEME] DAILYLAB CMP [COMPREHENSIVE METABOLIC PANEL] [CHEM] DAILYLAB MAGNESIUM [CHEM] Routine 03/22/18 05:00 CBC - COMP BLD CT W/AUTO DIFF [HEME] DAILYLAB CMP [COMPREHENSIVE METABOLIC PANEL] [CHEM] DAILYLAB 03/23/18 05:00 CBC - COMP BLD CT W/AUTO DIFF [HEME] DAILYLAB CMP [COMPREHENSIVE METABOLIC PANEL] [CHEM] DAILYLAB Objective Vital Signs: Vital Signs - 24 hr 03/19/18 03/20/18 03/20/18 20:18 00:11 05:00 Temperature 36.5 C 36.9 C 36.8 C Heart Rate [ 72 80 84 Brachial] Respiratory 24 16 18 Rate Blood Pressure 141/53 H 145/77 H 151/78 H [Right Brachial artery] O2 Saturation 100 98 98 03/20/18 03/20/18 03/20/18 08:00 11:49 16:20 Temperature 36.8 C 36.8 C 36.7 C Heart Rate [ 80 78 98 Brachial] Respiratory 16 16 16 Rate Blood Pressure 164/80 H 127/65 152/66 H [Right Brachial artery] O2 Saturation 99 98 99 Oxygen O2 Source Room air I&O (Last 24 Hrs): Intake and Output Totals x24h 03/18/18 03/19/18 03/20/18 23:59 23:59 23:59 Intake Total 2900 2770 1460.345 Output Total 9239 192 7212 Balance 1525 1795 360.345 - Results Results: Laboratory Results WBC 9.2 x10^3/uL (4.8-10.8) 03/20/18 09:40 RBC 3.58 10^6/uL (4.20-5.40) L 03/20/18 09:40 Hgb 10.5 g/dL (12.0-16.0) L 03/20/18 09:40 Hct 31.6 % (37.0-47.0) L 03/20/18 09:40 MCV 88.4 fL (81.0-99.0) 03/20/18 09:40 MCH 29.5 pg (27.0-31.0) 03/20/18 09:40 MCHC 33.3 g/dL (32.0-36.0) 03/20/18 09:40 RDW 17.8 % (12.0-15.0) H 03/20/18 09:40 Plt Count 180 10^3/uL (130-450) 03/20/18 09:40 MPV 9.7 fL (7.9-10.8) 03/20/18 09:40 Neut # (Auto) 6.7 10^3/uL (1.5-6.6) H 03/20/18 09:40 Lymph # (Auto) 1.3 10^3/uL (1.5-3.5) L 03/20/18 09:40 [place] # (Auto) 0.8 10^3/uL (0.0-1.0) 03/20/18 09:40 Eos # (Auto) 0.3 10^3/uL (0.0-0.7) 03/20/18 09:40 Baso # (Auto) 0.1 10^3/uL (0.0-0.1) 03/20/18 09:40 Absolute Nucleated RBC 0.01 x10^3/uL 03/20/18 09:40 Nucleated RBC % 0.1 /100WBC 03/20/18 09:40 PT 14.1 secs (9.9-12.6) H 03/15/18 16:37 INR 1.3 (0.8-1.2) H 03/15/18 16:37 APTT 36.0 secs (24.9-33.3) H 03/15/18 16:37 VBG pH 7.486 (7.31-7.41) H 03/15/18 16:37 VBG pCO2 34.1 mmHg (41-51) L 03/15/18 16:37 VBG pO2 59.5 mmHg (25-47) H 03/15/18 16:37 VBG HCO3 25.2 mmol/L (23-28) 03/15/18 16:37 VBG Total CO2 26.2 mmol/L (24-29) 03/15/18 16:37 VBG O2 Saturation 89.7 % (60-80) H 03/15/18 16:37 VBG Base Excess 2.3 mmol/L (-2 - +2) H 03/15/18 16:37 Sodium 144 mmol/L (135-145) 03/20/18 09:40 Potassium 4.1 mmol/L (3.5-5.0) 03/20/18 09:40 Chloride 118 mmol/L (101-111) H 03/20/18 09:40 Carbon Dioxide 18 mmol/L (21-32) L 03/20/18 09:40 Anion Gap 8.0 (6-13) 03/20/18 09:40 BUN 23 mg/dL (6-20) H 03/20/18 09:40 Creatinine 1.1 mg/dL (0.4-1.0) H 03/20/18 09:40 Estimated GFR (MDRD) 49 (>89) L 03/20/18 09:40 Glucose 134 mg/dL (70-100) H 03/20/18 09:40 Lactic Acid 1.9 mmol/L (0.5-2.2) 03/15/18 20:03 Calcium 8.5 mg/dL (8.5-10.3) 03/20/18 09:40 Phosphorus 3.0 mg/dL (2.5-4.6) 03/16/18 05:30 Magnesium 2.0 mg/dL (1.7-2.8) 03/16/18 05:30 Total Bilirubin 0.7 mg/dL (0.2-1.0) 03/16/18 05:30 AST 20 IU/L (10-42) 03/16/18 05:30 ALT 10 IU/L (10-60) 03/16/18 05:30 Alkaline Phosphatase 77 IU/L (42-121) 03/16/18 05:30 Ammonia 19.7 umol/L (7-35) 03/18/18 15:20 Total Creatine Kinase 15 IU/L (22-269) L 03/15/18 16:37 Troponin I 0.11 ng/mL (<0.49) 03/15/18 16:37 B-Natriuretic Peptide 243 pg/mL (5-100) H 03/15/18 16:37 Total Protein 6.1 g/dL (6.7-8.2) L 03/16/18 05:30 Albumin 2.8 g/dL (3.2-5.5) L 03/16/18 05:30 Globulin 3.3 g/dL (2.1-4.2) 03/16/18 05:30 Albumin/Globulin Ratio 0.8 (1.0-2.2) L 03/16/18 05:30 Lipase 74 U/L (22-51) H 03/15/18 16:37 TSH 1.31 uIU/mL (0.34-5.60) 03/15/18 16:37 Free T4 1.06 ng/dL (0.58-1.64) 03/15/18 16:37 Urine Color DARK YELLOW 03/15/18 16:55 Urine Clarity HAZY (CLEAR) 03/15/18 16:55 Urine pH 5.5 PH (5.0-7.5) 03/15/18 16:55 Ur Specific [place] 1.025 (1.002-1.030) 03/15/18 16:55 Urine Protein TRACE mg/dL (NEGATIVE) 03/15/18 16:55 Urine Glucose (UA) NEGATIVE mg/dL (NEGATIVE) 03/15/18 16:55 Urine Ketones NEGATIVE mg/dL (NEGATIVE) 03/15/18 16:55 Urine Occult Blood MODERATE (NEGATIVE) H 03/15/18 16:55 Urine Nitrite NEGATIVE (NEGATIVE) 03/15/18 16:55 Urine Bilirubin NEGATIVE (NEGATIVE) 03/15/18 16:55 Urine Urobilinogen 0.2 (NORMAL) E.U./dL (NORMAL) 03/15/18 16:55 Ur Leukocyte Esterase LARGE (NEGATIVE) H 03/15/18 16:55 Urine RBC 0-5 /HPF (0-5) 03/15/18 16:55 Urine WBC >25 /HPF (0-5) H 03/15/18 16:55 Urine WBC Clumps PRESENT 03/15/18 16:55 Ur Squamous Epith Cells FEW Squamous (<= Few) 03/15/18 16:55 Urine Bacteria Many /HPF (None Seen) H 03/15/18 16:55 Ur Microscopic Review INDICATED 03/15/18 16:55 Urine Culture Comments INDICATED 03/15/18 16:55 Salicylates < 6.0 mg/dL 03/15/18 16:37 Urine Opiates Screen NEGATIVE (NEGATIVE) 03/15/18 16:55 Ur Oxycodone Screen NEGATIVE (NEGATIVE) 03/15/18 16:55 Urine Methadone Screen NEGATIVE (NEGATIVE) 03/15/18 16:55 Ur Propoxyphene Screen NEGATIVE (NEGATIVE) 03/15/18 16:55 Acetaminophen < 10 ug/mL (10-30) L 03/15/18 16:37 Ur Barbiturates Screen NEGATIVE (NEGATIVE) 03/15/18 16:55 Ur Tricyclics Screen NEGATIVE (NEGATIVE) 03/15/18 16:55 Ur Phencyclidine Scrn NEGATIVE (NEGATIVE) 03/15/18 16:55 Ur Amphetamine Screen NEGATIVE (NEGATIVE) 03/15/18 16:55 U Methamphetamines Scrn NEGATIVE (NEGATIVE) 03/15/18 16:55 U Benzodiazepines Scrn NEGATIVE (NEGATIVE) 03/15/18 16:55 Urine Cocaine Screen NEGATIVE (NEGATIVE) 03/15/18 16:55 U Cannabinoids Screen NEGATIVE (NEGATIVE) 03/15/18 16:55 Ethyl Alcohol < 5.0 mg/dL 03/15/18 16:37 Serum Ketones SMALL (NEGATIVE) H 03/15/18 16:37 ABX Reporting Has patient been on IV antibiotics over the past 48 hours?: Yes
[2018-03-20] MEDS ORDERED: amLODIPine 5 MG TABLET PO ONE (17:08)
[2018-03-20] MEDS: traZODone 50 MG TABLET PO SCH (22:11)
[2018-03-21] MEDS: LORazepam 2 MG/ML VIAL IVP PRN (01:29)
[2018-03-21] MEDS: SODIUM CHLORIDE FLUSH 0.9% 10 ML SYRINGE IVP SCH ×3 (01:29→19:05)
[2018-03-21] MEDS: D5NS W/20 MEQ KCL 1,000 ML IV SCH ×2 (01:29→09:18)
[2018-03-21] MEDS: ZINC OXIDE 20% OINT 28.35 GM TUBE TOP PRN (05:30)
[2018-03-21 06:28] LABS: BASOPHILS # (AUTO) 0.1 10^3/uL (0.0-0.1); BASOPHILS % (AUTO) 0.8 %; EOSINOPHILS # (AUTO) 0.3 10^3/uL (0.0-0.7); EOSINOPHILS % (AUTO) 4.3 %; LYMPHOCYTES # (AUTO) 1.1 10^3/uL (1.5-3.5); MEAN CORPUSCULAR HEMOGLOBIN 29.9 pg (27.0-31.0); MEAN CORPUSCULAR HGB CONC 32.8 g/dL (32.0-36.0); MEAN PLATELET VOLUME 9.6 fL (7.9-10.8); MONOCYTES # (AUTO) 0.6 10^3/uL (0.0-1.0); MONOCYTES % (AUTO) 8.5 %; NEUTROPHILS # (AUTO) 5.1 10^3/uL (1.5-6.6); NEUTROPHILS % (AUTO) 71.4 %; PLT - PLATELET COUNT 179 10^3/uL (130-450); RED BLOOD COUNT 3.34 10^6/uL (4.20-5.40); RED CELL DISTRIBUTION WIDTH 17.9 % (12.0-15.0); WHITE BLOOD COUNT 7.2 x10^3/uL (4.8-10.8)
[2018-03-21] MEDS: PANTOPRAZOLE 40 MG VIAL IVP SCH (06:43)
[2018-03-21] MEDS: SODIUM CHLORIDE FLUSH 0.9% 10 ML SYRINGE IVP PRN ×2 (06:44→06:45)
[2018-03-21 07:24] LABS: ALBUMIN 2.3 g/dL (3.2-5.5); ALBUMIN/GLOBULIN RATIO 0.8 (1.0-2.2); BILIRUBIN,TOTAL 0.6 mg/dL (0.2-1.0); CALCIUM 8.1 mg/dL (8.5-10.3); CREATININE 1.1 mg/dL (0.4-1.0); TOTAL PROTEIN 5.3 g/dL (6.7-8.2)
[2018-03-21 07:31] LABS: MAGNESIUM 0.9 mg/dL (1.7-2.8)
[2018-03-21] MEDS ORDERED: MAGNESIUM SULFATE 2 GRAM 2 GM/50 ML BAG IV ONE (07:43)
[2018-03-21] MEDS: POLYETHYLENE GLYCOL 3350 17 GM PACKET PO SCH (07:46)
[2018-03-21] MEDS ORDERED: amLODIPine 5 MG TABLET PO SCH (09:00)
[2018-03-21] MEDS: CIPROFLOXACIN 250 MG TABLET PO SCH ×2 (09:22→20:38)
[2018-03-21] MEDS: PARoxetine 10 MG TABLET PO SCH (09:22)
[2018-03-21] MEDS: CHOLECALCIFEROL 1,000 UNIT TABLET PO SCH (09:22)
[2018-03-21] MEDS: amLODIPine 5 MG TABLET PO SCH (09:22)
[2018-03-21] MEDS: FOLIC ACID 1 MG TABLET PO SCH (09:22)
[2018-03-21] MEDS: LACTOBACILLUS RHAMNOSUS GG CAPSULE PO SCH (09:22)
[2018-03-21] MEDS: THIAMINE 100 MG TABLET PO SCH ×2 (09:22→20:38)
[2018-03-21] MEDS: SACCHAROMYCES BOULARDII 250 MG CAPSULE PO SCH (09:22)
[2018-03-21] MEDS: NICOTINE 14 MG PATCH TOP SCH (09:22)
[2018-03-21] MEDS: TOLTERODINE LA 2 MG CAPSULE PO SCH (09:23)
[2018-03-21] MEDS ORDERED: LORazepam 2 MG/ML VIAL IVP PRN (12:30)
[2018-03-21] MEDS: MAGNESIUM OXIDE 400 MG TABLET PO SCH (13:41)
[2018-03-21] MEDS: NS W/20 MEQ KCL 1,000 ML IV SCH (13:44)
[2018-03-21] MEDS: THIAMINE INJ 500 MG in SODIUM CHLORIDE 0.9% 50 ML IV SCH ×2 (14:07→22:13)
--- NOTE | 2018-03-21 15:51 | PROVIDER PROGRESS NOTE ---
Subjective - Prog Note Date Prog Note Date: 03/21/18 Prog Note Time: 15:48 - Subjective Pt reports feeling: Improved Subjective: Patient with slowed speech and cognition deficits, denies hallucinations. Fair appetite. No acute events, no fevers, chils, GI/ sx's Current Medications - Current Medications Current Medications: Active Medications Generic Name Dose Route Start Last Admin Trade Name Freq PRN Reason Stop Dose Admin Acetaminophen 650 mg 03/15/18 17:35 Tylenol PO Q4HR PRN Pain 1 to 4 Alendronate Sodium 70 mg 03/24/18 07:00 Fosamax PO Fr JAKUB Amlodipine Besylate 10 mg 03/21/18 09:00 03/21/18 09:22 Norvasc PO 10 mg DAILY JAKUB Administration Atorvastatin Calcium 20 mg 03/21/18 21:00 Lipitor PO QPM JAKUB Cholecalciferol 1,000 unit 03/21/18 09:00 03/21/18 09:22 Vitamin D3 PO 1,000 unit DAILY JAKUB Administration Ciprofloxacin 250 mg 03/18/18 21:00 03/21/18 09:22 Cipro PO 250 mg BID JAKUB Administration Folic Acid 1 mg 03/16/18 14:00 03/21/18 09:22 PO 1 mg DAILY JAKUB Administration Hydromorphone HCl 0.5 mg 03/17/18 12:24 Dilaudid Inj Syringe IVP Q6H PRN Pain 8 to 10 Potassium Chloride/Sodium Chloride 1,000 mls @ 75 mls/hr 03/21/18 13:00 03/21/18 13:44 Normal Saline 0.9% W/20 Meq Kcl IV 75 mls/hr .[id number] JAKUB Administration Thiamine HCl 500 mg/ Sodium 55 mls @ 100 mls/hr 03/21/18 14:00 03/21/18 14:40 Chloride IV 03/23/18 06:32 Infused TID JAKUB Infusion Lactobacillus Rhamnosus 1 cap 03/21/18 09:00 03/21/18 09:22 Culturelle PO 1 cap DAILY JAKUB Administration Lorazepam 2 mg 03/21/18 12:30 Ativan Inj (Vial) IVP Q1HR PRN CIWA >8 Protocol Magnesium Oxide 800 mg 03/21/18 12:00 03/21/18 13:41 Mag Ox PO 800 mg DAILY@1200 JAKUB Administration Multi-Ingredient Ointment 1 applic 03/19/18 15:13 03/21/18 05:30 Zinc Oxide TOP 1 applic PRN PRN Administration Skin Care Nicotine 1 patch 03/16/18 14:00 03/21/18 09:22 Nicoderm TOP 1 patch DAILY JAKUB Administration Non-Formulary Medication 1 each 03/21/18 21:00 Non Formulary PO QPM JAKUB Ondansetron HCl 4 mg 03/15/18 17:35 Zofran Inj IVP Q6HR PRN Nausea / Vomiting Ondansetron HCl 4 mg 03/15/18 17:35 Zofran Odt TL Q6HR PRN Nausea / Vomiting Pantoprazole Sodium 40 mg 03/15/18 20:00 03/21/18 06:43 Protonix IVP 40 mg QDAC [facility] Administration Paroxetine HCl 40 mg 03/21/18 09:00 03/21/18 09:22 Paxil PO 40 mg DAILY [facility] Administration Polyethylene Glycol 17 gm 03/16/18 09:00 03/21/18 07:46 Miralax PO Not Given DAILY [facility] Sodium Chloride 10 ml 03/15/18 17:35 03/21/18 06:45 Normal Saline Flush 0.9% IVP 10 ml PRN PRN Administration NEEDED PER PROVIDER ORDERS Sodium Chloride 10 ml 03/16/18 01:00 03/21/18 09:23 Normal Saline Flush 0.9% IVP Not Given 0100,0900,1700 [facility] Thiamine HCl 100 mg 03/21/18 21:00 Vitamin B-1 PO BID [facility] Tolterodine Tartrate 4 mg 03/21/18 09:00 03/21/18 09:23 Detrol La PO 4 mg DAILY [facility] Administration Trazodone HCl 100 mg 03/20/18 21:00 03/20/18 22:11 Desyrel PO 100 mg QPM [facility] Administration Amlodipine Besylate 10 mg PO DAILY 11/22/17 Cholecalciferol (Vitamin D3) [Vitamin D3] 1,000 cap PO DAILY 11/22/17 Lactobacillus Acidophilus [Probiotic Acidophilus] 1 tab PO DAILY 11/22/17 Lovastatin 40 mg PO QPM 11/22/17 PARoxetine HCl [Paroxetine HCl] 40 mg PO DAILY 11/22/17 Tolterodine Tartrate [Detrol LA] 4 mg PO DAILY 11/22/17 Trazodone HCl 100 tab PO QPM PRN 11/22/17 Alendronate Sodium 70 mg PO Q7D 03/15/18 Objective - Vital Signs/Intake & Output Vital Signs: Vital Signs x48h Temp Pulse Resp BP BP Pulse Ox 03/21/18 15:42 36.6 C 80 16 102/50 L 99 03/21/18 12:09 36.5 C 94 18 129/60 96 03/21/18 08:00 36.4 C L 92 18 140/101 H 98 Intake & Output: Intake & Output 03/18/18 03/19/18 03/20/18 03/21/18 23:59 23:59 23:59 23:59 Intake Total 2900 2770 2763.668 1759.000 Output Total 2094 098 3191 200 Balance 1525 1795 1522.887 0172.000 - Objective General Appearance: positive: No acute distress, Other (chronically ill- appearing.) Eyes Bilateral: positive: Normal inspection ENT: positive: ENT inspection nml Neck: positive: Nml inspection Respiratory: positive: Chest non-tender, Breath sounds nml. negative: Wheezes, Rhonchi Cardiovascular: positive: Regular rate & rhythm, No murmur. negative: JVD present, Systolic murmur Abdomen: positive: Non-tender, No organomegaly, Nml bowel sounds, No distention. negative: Tenderness, Guarding, Rebound, Hepatomegaly, Splenomegaly Extremities: positive: Non-tender, Full ROM, Nml appearance Neurologic/Psychiatric: positive: Oriented x3 (poor cogniton, poor insight, no P MR, confabulates), Other - Lab Results Fish Bones: 03/21/18 06:19 03/21/18 06:38 Other Labs: Lab Results x24hrs 03/21/18 03/21/18 03/21/18 Range/Units 06:38 06:19 06:19 WBC 7.2 (4.8-10.8) x10^3/uL RBC 3.34 L (4.20-5.40) 10^6/uL Hgb 10.0 L (12.0-16.0) g/dL Hct 30.4 L (37.0-47.0) % MCV 91.0 (81.0-99.0) fL MCH 29.9 (27.0-31.0) pg MCHC 32.8 (32.0-36.0) g/dL RDW 17.9 H (12.0-15.0) % Plt Count 179 (130-450) 10^3/uL MPV 9.6 (7.9-10.8) fL Neut # (Auto) 5.1 (1.5-6.6) 10^3/uL Lymph # (Auto) 1.1 L (1.5-3.5) 10^3/uL [place] # (Auto) 0.6 (0.0-1.0) 10^3/uL Eos # (Auto) 0.3 (0.0-0.7) 10^3/uL Baso # (Auto) 0.1 (0.0-0.1) 10^3/uL Absolute Nucleated RBC 0.00 x10^3/uL Nucleated RBC % 0.1 /100WBC Sodium 141 (135-145) mmol/L Potassium 4.0 (3.5-5.0) mmol/L Chloride 113 H (101-111) mmol/L Carbon Dioxide 23 (21-32) mmol/L Anion Gap 5.0 L (6-13) BUN 16 (6-20) mg/dL Creatinine 1.1 H (0.4-1.0) mg/dL Estimated GFR (MDRD) 49 L (>89) Glucose 96 (70-100) mg/dL Calcium 8.1 L (8.5-10.3) mg/dL Magnesium 0.9 L* (1.7-2.8) mg/dL Total Bilirubin 0.6 (0.2-1.0) mg/dL AST 34 (10-42) IU/L ALT 26 (10-60) IU/L Alkaline Phosphatase 101 (42-121) IU/L Ammonia 10.4 (7-35) umol/L Total Protein 5.3 L (6.7-8.2) g/dL Albumin 2.3 L (3.2-5.5) g/dL Globulin 3.0 (2.1-4.2) g/dL Albumin/Globulin Ratio 0.8 L (1.0-2.2) - Diagnostic Imaging Diagnostic Imaging Results: positive: Final report reviewed Assessment/Plan - Problem List (1) Wernicke encephalopathy syndrome Impression: CIWA is 4, mental tatus improved. Previously confabulating, mild now.This mental ststus appears to wax and wane. IV thiamine 500 mg IV TID for 3 days indicated. Continue [facility] protocol, cueing and supportive care. (2) Acute renal failure superimposed on stage 3 chronic kidney disease Impression: Her baseline runs between 1.1 to 1.5, back to her baseline, now at 1.1. Continue IVF's to decreasing dose, avoid nephrotoxic agents. Avoid hypertensive evetns wi th resuming BP meds. Clark has been discontinued, continue Detrol LA. Renal panel to follow. Qualifiers: Acute renal failure type: unspecified Qualified Code(s): N17.9 - Acute kidney failure, unspecified; N18.3 - Chronic kidney disease, stage 3 (moderate) (3) Alcohol abuse Impression: CIWA low, had etoh withdrawals here. Will adjust Ativan. Nutrition has advised supplements for alcoholic patient. MVI's and electrolyte repletion. (4) Diarrhea Impression: This has decreased. Continue with anti-diarrheal meds, C.diff was neg, will follow. Likely contributed to patient's dehydration and NAHOMY. Qualifiers: Diarrhea type: unspecified type Qualified Code(s): R19.7 - Diarrhea, unspecified (5) UTI due to Klebsiella species Impression: Pt was iv Cipro. Now on PO cipro to complete a 7 day course. (6) Severe protein-calorie malnutrition Impression: Supplements ordered. Will advance her diet since N/V have resolved. Supportive care continued. Will add remeron and megace to further stimulate appetite and improve and optimize her medical and nutritional status.
[2018-03-21] MEDS: ATORVASTATIN 10 MG TABLET PO SCH (20:38)
[2018-03-21] MEDS: traZODone 50 MG TABLET PO SCH (20:39)
[2018-03-21] MEDS: NON FORMULARY MED PO SCH (20:39)
[2018-03-21] MEDS: MIRTAZAPINE 15 MG TABLET PO SCH (20:39)
[2018-03-22] MEDS: SODIUM CHLORIDE FLUSH 0.9% 10 ML SYRINGE IVP SCH ×3 (01:32→16:12)
[2018-03-22] MEDS: NS W/20 MEQ KCL 1,000 ML IV SCH (05:15)
[2018-03-22] MEDS: PANTOPRAZOLE 40 MG VIAL IVP SCH (05:22)
[2018-03-22] MEDS: SODIUM CHLORIDE FLUSH 0.9% 10 ML SYRINGE IVP PRN (05:22)
[2018-03-22] MEDS: THIAMINE INJ 500 MG in SODIUM CHLORIDE 0.9% 50 ML IV SCH ×3 (05:34→21:39)
[2018-03-22 06:20] LABS: BASOPHILS % (AUTO) 0.6 %; EOSINOPHILS # (AUTO) 0.3 10^3/uL (0.0-0.7); EOSINOPHILS % (AUTO) 4.2 %; HGB - HEMOGLOBIN 9.2 g/dL (12.0-16.0); LYMPHOCYTES # (AUTO) 1.3 10^3/uL (1.5-3.5); LYMPHOCYTES % (AUTO) 18.3 %; MEAN CORPUSCULAR HEMOGLOBIN 29.5 pg (27.0-31.0); MEAN CORPUSCULAR HGB CONC 32.6 g/dL (32.0-36.0); MEAN CORPUSCULAR VOLUME 90.4 fL (81.0-99.0); MEAN PLATELET VOLUME 9.6 fL (7.9-10.8); MONOCYTES # (AUTO) 0.6 10^3/uL (0.0-1.0); NEUTROPHILS # (AUTO) 4.9 10^3/uL (1.5-6.6); NEUTROPHILS % (AUTO) 68.9 %; PLT - PLATELET COUNT 209 10^3/uL (130-450); RED BLOOD COUNT 3.11 10^6/uL (4.20-5.40); RED CELL DISTRIBUTION WIDTH 18.2 % (12.0-15.0); WHITE BLOOD COUNT 7.1 x10^3/uL (4.8-10.8)
[2018-03-22 06:39] LABS: ALBUMIN 1.9 g/dL (3.2-5.5); ALBUMIN/GLOBULIN RATIO 0.8 (1.0-2.2); BILIRUBIN,TOTAL 0.6 mg/dL (0.2-1.0); CREATININE 1.2 mg/dL (0.4-1.0); TOTAL PROTEIN 4.4 g/dL (6.7-8.2)
[2018-03-22] MEDS: SODIUM CHLORIDE 0.45% 1,000 ML IV SCH ×2 (07:11→21:38)
[2018-03-22 07:31] LABS: MAGNESIUM 1.6 mg/dL (1.7-2.8)
[2018-03-22] MEDS: MEGESTROL 400 MG/10 ML UDC PO SCH (09:52)
[2018-03-22] MEDS: THIAMINE 100 MG TABLET PO SCH ×2 (09:52→21:41)
[2018-03-22] MEDS: LACTOBACILLUS RHAMNOSUS GG CAPSULE PO SCH (09:52)
[2018-03-22] MEDS: CHOLECALCIFEROL 1,000 UNIT TABLET PO SCH (09:52)
[2018-03-22] MEDS: TOLTERODINE LA 2 MG CAPSULE PO SCH (09:52)
[2018-03-22] MEDS: amLODIPine 5 MG TABLET PO SCH (09:52)
[2018-03-22] MEDS: PARoxetine 10 MG TABLET PO SCH (09:52)
[2018-03-22] MEDS: POLYETHYLENE GLYCOL 3350 17 GM PACKET PO SCH (09:53)
[2018-03-22] MEDS: NICOTINE 14 MG PATCH TOP SCH (09:53)
[2018-03-22] MEDS: CIPROFLOXACIN 250 MG TABLET PO SCH ×2 (09:55→21:41)
[2018-03-22] MEDS: FOLIC ACID 1 MG TABLET PO SCH (09:55)
[2018-03-22] MEDS: MAGNESIUM OXIDE 400 MG TABLET PO SCH (13:40)
[2018-03-22] MEDS: MIRTAZAPINE 15 MG TABLET PO SCH (21:41)
[2018-03-22] MEDS: traZODone 50 MG TABLET PO SCH (21:41)
[2018-03-22] MEDS: NON FORMULARY MED PO SCH (21:41)
[2018-03-22] MEDS: ATORVASTATIN 10 MG TABLET PO SCH (22:00)
[2018-03-23] MEDS: SODIUM CHLORIDE FLUSH 0.9% 10 ML SYRINGE IVP SCH ×3 (00:56→16:14)
[2018-03-23 06:01] LABS: BASOPHILS % (AUTO) 0.5 %; EOSINOPHILS # (AUTO) 0.2 10^3/uL (0.0-0.7); EOSINOPHILS % (AUTO) 3.3 %; HGB - HEMOGLOBIN 9.1 g/dL (12.0-16.0); LYMPHOCYTES # (AUTO) 1.2 10^3/uL (1.5-3.5); LYMPHOCYTES % (AUTO) 15.6 %; MEAN CORPUSCULAR HEMOGLOBIN 29.7 pg (27.0-31.0); MEAN PLATELET VOLUME 9.2 fL (7.9-10.8); MONOCYTES # (AUTO) 0.5 10^3/uL (0.0-1.0); MONOCYTES % (AUTO) 7.1 %; NEUTROPHILS # (AUTO) 5.6 10^3/uL (1.5-6.6); NEUTROPHILS % (AUTO) 73.5 %; PLT - PLATELET COUNT 216 10^3/uL (130-450); RED BLOOD COUNT 3.08 10^6/uL (4.20-5.40); RED CELL DISTRIBUTION WIDTH 18.4 % (12.0-15.0); WHITE BLOOD COUNT 7.7 x10^3/uL (4.8-10.8)
[2018-03-23] MEDS: THIAMINE INJ 500 MG in SODIUM CHLORIDE 0.9% 50 ML IV SCH (06:09)
[2018-03-23] MEDS: PANTOPRAZOLE 40 MG VIAL IVP SCH (06:10)
[2018-03-23 06:13] LABS: ALBUMIN 2.1 g/dL (3.2-5.5); ALBUMIN/GLOBULIN RATIO 0.8 (1.0-2.2); BILIRUBIN,TOTAL 0.4 mg/dL (0.2-1.0); CALCIUM 8.2 mg/dL (8.5-10.3); CREATININE 1.4 mg/dL (0.4-1.0); TOTAL PROTEIN 4.8 g/dL (6.7-8.2)
--- NOTE | 2018-03-23 08:31 | PROVIDER PROGRESS NOTE ---
Subjective - Prog Note Date Prog Note Date: 03/23/18 Prog Note Time: 08:30 - Subjective Pt reports feeling: Improved Subjective: Patient with no acute events. On IV thiamine, eating well with no aspiration events, no fevers, CP, SOB, GI/ symptoms. Current Medications - Current Medications Current Medications: Active Medications Acetaminophen (Tylenol) 650 mg PO Q4HR PRN PRN Reason: Pain 1 to 4 Alendronate Sodium (Fosamax) 70 mg PO [facility] Amlodipine Besylate (Norvasc) 10 mg PO DAILY [facility] Last Admin: 03/22/18 09:52 Dose: 10 mg Atorvastatin Calcium (Lipitor) 20 mg PO QPM [facility] Last Admin: 03/22/18 22:00 Dose: 20 mg Cholecalciferol (Vitamin D3) 1,000 unit PO DAILY [facility] Last Admin: 03/22/18 09:52 Dose: 1,000 unit Ciprofloxacin (Cipro) 250 mg PO BID [facility] Last Admin: 03/22/18 21:41 Dose: 250 mg Folic Acid () 1 mg PO DAILY [facility] Last Admin: 03/22/18 09:55 Dose: 1 mg Hydromorphone HCl (Dilaudid Inj Syringe) 0.5 mg IVP Q6H PRN PRN Reason: Pain 8 to 10 Sodium Chloride (Normal Saline 0.45%) 1,000 mls @ 75 mls/hr IV .[id number] [facility] Last Infusion: 03/23/18 06:56 Dose: 75 mls/hr Lactobacillus Rhamnosus (Culturelle) 1 cap PO DAILY [facility] Last Admin: 03/22/18 09:52 Dose: 1 cap Lorazepam (Ativan Inj (Vial)) 2 mg IVP Q1HR PRN; Protocol PRN Reason: CIWA >8 Magnesium Oxide (Mag Ox) 800 mg PO BIDWM [facility] Megestrol Acetate (Megace) 800 mg PO DAILY [facility] Last Admin: 03/22/18 09:52 Dose: 800 mg Mirtazapine (Remeron) 7.5 mg PO QPM [facility] Last Admin: 03/22/18 21:41 Dose: 7.5 mg Multi-Ingredient Ointment (Zinc Oxide) 1 applic TOP PRN PRN PRN Reason: Skin Care Last Admin: 03/21/18 05:30 Dose: 1 applic Nicotine (Nicoderm) 1 patch TOP DAILY [facility] Last Admin: 03/22/18 09:53 Dose: 1 patch Non-Formulary Medication (Non Formulary) 1 each PO QPM [facility] Last Admin: 03/22/18 21:41 Dose: Not Given Ondansetron HCl (Zofran Inj) 4 mg IVP Q6HR PRN PRN Reason: Nausea / Vomiting Ondansetron HCl (Zofran Odt) 4 mg TL Q6HR PRN PRN Reason: Nausea / Vomiting Pantoprazole Sodium (Protonix) 40 mg IVP QDAC [facility] Last Admin: 03/23/18 06:10 Dose: 40 mg Paroxetine HCl (Paxil) 40 mg PO DAILY [facility] Last Admin: 03/22/18 09:52 Dose: 40 mg Polyethylene Glycol (Miralax) 17 gm PO DAILY [facility] Last Admin: 03/22/18 09:53 Dose: Not Given Sodium Chloride (Normal Saline Flush 0.9%) 10 ml IVP PRN PRN PRN Reason: NEEDED PER PROVIDER ORDERS Last Admin: 03/22/18 05:22 Dose: 10 ml Sodium Chloride (Normal Saline Flush 0.9%) 10 ml IVP 0100,0900,1700 [facility] Last Admin: 03/23/18 00:56 Dose: Not Given Thiamine HCl (Vitamin B-1) 100 mg PO BID [facility] Last Admin: 03/22/18 21:41 Dose: 100 mg Tolterodine Tartrate (Detrol La) 4 mg PO DAILY [facility] Last Admin: 03/22/18 09:52 Dose: 4 mg Trazodone HCl (Desyrel) 100 mg PO QPM [facility] Last Admin: 03/22/18 21:41 Dose: 100 mg Amlodipine Besylate 10 mg PO DAILY 11/22/17 Cholecalciferol (Vitamin D3) [Vitamin D3] 1,000 cap PO DAILY 11/22/17 Lactobacillus Acidophilus [Probiotic Acidophilus] 1 tab PO DAILY 11/22/17 Lovastatin 40 mg PO QPM 11/22/17 PARoxetine HCl [Paroxetine HCl] 40 mg PO DAILY 11/22/17 Tolterodine Tartrate [Detrol LA] 4 mg PO DAILY 11/22/17 Trazodone HCl 100 tab PO QPM PRN 11/22/17 Alendronate Sodium 70 mg PO Q7D 03/15/18 Objective - Vital Signs/Intake & Output Vital Signs: Vital Signs x48h Temp Pulse Resp BP Pulse Ox 03/23/18 08:00 36.4 C L 74 16 137/72 H 95 Intake & Output: Intake & Output 03/20/18 03/21/18 03/22/18 03/23/18 23:59 23:59 23:59 23:59 Intake Total 2763.668 2034.000 2819.25 735 Output Total 1500 200 Balance 5802.991 7919.000 2819.25 735 - Objective General Appearance: positive: No acute distress Neck: positive: Nml inspection, Thyroid nml, No JVD, Trachea midline Respiratory: positive: Chest non-tender, No respiratory distress, Breath sounds nml Cardiovascular: positive: Regular rate & rhythm, No murmur, No gallop. negative: Irregularly irregular, JVD present, Systolic murmur, Gallop/S4 Abdomen: positive: Non-tender, No organomegaly, Nml bowel sounds, No distention. negative: Tenderness Skin: positive: Color nml, No rash, Warm Extremities: positive: Non-tender, Full ROM, Nml appearance Neurologic/Psychiatric: positive: CN's nml (2-12), Weakness, Other (mild resting tremors to legs. Abnormal cognition. Poor memory.). negative: Facial droop, Slurred/abnml speech, Depressed mood/affect - Lab Results Fish Bones: 03/23/18 05:54 03/23/18 05:54 Other Labs: Lab Results x24hrs 03/23/18 03/23/18 03/23/18 Range/Units 05:54 05:54 05:54 WBC 7.7 (4.8-10.8) x10^3/uL RBC 3.08 L (4.20-5.40) 10^6/uL Hgb 9.1 L (12.0-16.0) g/dL Hct 27.7 L (37.0-47.0) % MCV 90.0 (81.0-99.0) fL MCH 29.7 (27.0-31.0) pg MCHC 33.0 (32.0-36.0) g/dL RDW 18.4 H (12.0-15.0) % Plt Count 216 (130-450) 10^3/uL MPV 9.2 (7.9-10.8) fL Neut # (Auto) 5.6 (1.5-6.6) 10^3/uL Lymph # (Auto) 1.2 L (1.5-3.5) 10^3/uL [place] # (Auto) 0.5 (0.0-1.0) 10^3/uL Eos # (Auto) 0.2 (0.0-0.7) 10^3/uL Baso # (Auto) 0.0 (0.0-0.1) 10^3/uL Absolute Nucleated RBC 0.00 x10^3/uL Nucleated RBC % 0.0 /100WBC Sodium 141 (135-145) mmol/L Potassium 4.4 (3.5-5.0) mmol/L Chloride 115 H (101-111) mmol/L Carbon Dioxide 22 (21-32) mmol/L Anion Gap 4.0 L (6-13) BUN 13 (6-20) mg/dL Creatinine 1.4 H (0.4-1.0) mg/dL Estimated GFR (MDRD) 37 L (>89) Glucose 89 (70-100) mg/dL Uric Acid 7.4 H (2.6-7.2) mg/dL Calcium 8.2 L (8.5-10.3) mg/dL Total Bilirubin 0.4 (0.2-1.0) mg/dL AST 26 (10-42) IU/L ALT 22 (10-60) IU/L Alkaline Phosphatase 93 (42-121) IU/L Total Protein 4.8 L (6.7-8.2) g/dL Albumin 2.1 L (3.2-5.5) g/dL Globulin 2.8 (2.1-4.2) g/dL Albumin/Globulin Ratio 0.8 L (1.0-2.2) Assessment/Plan - Problem List (1) Wernicke encephalopathy syndrome Impression: CIWA scoring low, no need for Ativan, mental status improved. Receiving IV th iamine, poor memory with cognition and confabulation. Will receive 3 days worth of IV thiamine 500 mg IV TID. Disposition to SNF. (2) Acute renal failure superimposed on stage 3 chronic kidney disease Impression: Uptrending of cr now to 1.4. Avoid nephrotoxic agents. Avoid hypotensive events with resuming BP meds. Clark has been discontinued, on Detrol LA. Currently on IVFs at 75 ml/hr, has hyperuricemia w/o clinical evidence of gouty arthritis. Start allopurinol 100 mg po bid. Qualifiers: Acute renal failure type: unspecified Qualified Code(s): N17.9 - Acute kidney failure, unspecified; N18.3 - Chronic kidney disease, stage 3 (moderate) (3) Alcohol abuse Impression: On Revia 50 mg po qhs. Continue with med mgmt, MVI's, FA, and IV thiamine to r evive 3 days worth. Disposition to SNF. (4) UTI due to Klebsiella species Impression: Will complete PO cipro to complete a 7 day course. (5) Severe protein-calorie malnutrition Impression: Continue with nutritional Supplements. Supportive care continued. Appetite improved on remeron and megace, optimize her medical and nutritional status. (6) Physical deconditioning Impression: Due to Wernicke's syndrome has ataxia with weakness. PT to assess mobility. SW consulted. SNF plcmt. (7) Hyperuricemia Impression: Uric acid 7.4, may be contributing to LUIS A. Will correct with allopurinol. (8) Hypomagnesemia Impression: Sec to nutritional def from chronic alcohol abuse, uptitrated to magoxide 800 mg po bid.
[2018-03-23] MEDS: amLODIPine 5 MG TABLET PO SCH (08:52)
[2018-03-23] MEDS: POLYETHYLENE GLYCOL 3350 17 GM PACKET PO SCH (08:53)
[2018-03-23] MEDS: THIAMINE 100 MG TABLET PO SCH ×2 (08:53→20:08)
[2018-03-23] MEDS: MAGNESIUM OXIDE 400 MG TABLET PO SCH ×2 (08:53→16:13)
[2018-03-23] MEDS: LACTOBACILLUS RHAMNOSUS GG CAPSULE PO SCH (08:53)
[2018-03-23] MEDS: PARoxetine 10 MG TABLET PO SCH (08:53)
[2018-03-23] MEDS: CIPROFLOXACIN 250 MG TABLET PO SCH ×2 (08:53→20:08)
[2018-03-23] MEDS: CHOLECALCIFEROL 1,000 UNIT TABLET PO SCH (08:53)
[2018-03-23] MEDS: MEGESTROL 400 MG/10 ML UDC PO SCH (08:53)
[2018-03-23] MEDS: FOLIC ACID 1 MG TABLET PO SCH (08:53)
[2018-03-23] MEDS: NICOTINE 14 MG PATCH TOP SCH (08:53)
[2018-03-23] MEDS: TOLTERODINE LA 2 MG CAPSULE PO SCH (08:54)
[2018-03-23] MEDS: SODIUM CHLORIDE 0.45% 1,000 ML IV SCH (11:07)
--- NOTE | 2018-03-23 15:28 | Discharge Plan ---
"Discharge Plan for SNF / [facility] - Discharge Plan And Transition Orders Disposition: 03 SNF DC/Xfer Condition: Stable Allergies and Adverse Reactions: Allergies Allergy/AdvReac Type Severity Reaction Status Date / Time lisinopril Allergy Severe Anaphylaxis Verified 03/15/18 18:13 - SNF / [facility] Transition Orders Admit to (Facility): [facility] Under the care of (Name): [facility] Discharge Diagnosis: (1) Wernicke encephalopathy syndrome Impression: Improved/Stable (2) Acute renal failure superimposed on stage 3 chronic kidney disease Impression: Stable (3) Alcohol abuse Impression: Stable (4) UTI due to Klebsiella species Impression: Resolving s/p cipro 7 day course. (5) Severe protein-calorie malnutrition Impression: Stable (6) Physical deconditioning Impression: Improved (7) Hyperuricemia Impression: Stable (8) Hypomagnesemia Impression: Improved 9) Folic acid def sec to nutritional def/ETOH abuse with Macrocytosis Anemia. Stable Medicare Certification Statement: I certify that Post Hospital care home care is medically necessary on a continuing basis for any of the conditions for which she/he is receiving care during hospitalization. Notify PCP of admission and forward orders to primary provider for signature. Weight on admission and: Daily Other Notification Orders: Call PCP immediately if patient develops dyspnea, chest pain/tightness or edema. House Bowel Program: Yes Additional Bowel Program Orders: If no BM after 2 days, nurse may give M.O.M. 30ml PO PRN and/or ducolax Supp 1 CT and/or BLAYNE 250mg P.O., and/or senna 1-2 tabs PO. On day 3 nurse may give repeat above order until residents constipation is resolved. Annual Influenza Vaccine (between Jan 28 and August 27): Yes Two-step PPD per [facility] [phone] or approved exception documents: No Treatments & Other Orders: See MAR Medication Orders: PLEASE REFER TO THE DISCHARGE MEDICATION LIST. Insulin Orders?: No - Medications New Prescriptions: Naltrexone HCl 50 mg PO DAILY #30 tablet - Diet Type: No added salt Texture: Mech soft (with frequent queing) Supplements: ensure TID May have monthly special meal: No - Therapies | Activity Therapy: Evaluation | Treat if indicated: Speech, PT, OT Rehabilitation Potential: Maximize functional status Activity: Activity as Tolerated Weight Bearing: Full Weight Assistance Devices: Walker Follow Up: f/u with PCP Socorro Pereira in 1-2 weeks"
--- NOTE | 2018-03-23 15:40 | DISCHARGE SUMMARY ---
Discharge Summary Admit Date: 03/15/18 Discharge Date: 03/24/18 Discharging Provider: Dr. Smart Primary Care Provider: Socorro Mcelroy DO Code Status: Attempt Resuscitation Condition at Discharge: Stable Discharge Disposition: 03 SNF DC/Xfer Discharge Facility Name: [facility] - DIAGNOSES Discharge Diagnoses with Status of Each Condition: (1) Wernicke encephalopathy syndrome Impression: Improved/Stable (2) Acute renal failure superimposed on stage 3 chronic kidney disease Impression: Stable (3) Alcohol abuse Impression: Stable (4) UTI due to Klebsiella species Impression: Resolving Continue cipro to complete a 7 day course. (5) Severe protein-calorie malnutrition Impression: Stable (6) Physical deconditioning Impression: Improved (7) Hyperuricemia Impression: Stable (8) Hypomagnesemia Impression: Improved 9). Nutritional def/FA def mild sec to ETOH abuse. - HPI History of Present Illness: 73-year-old female was brought into the emergency department for confusion and altered mental status. The patient was found on the floor covered in her feces and significantly confused and disoriented. The patient was last seen normal 2 months ago. No history was obtained from the patient secondary to the acuity of her condition. In the ED The patient is following basic commands but is not articulated any issue to myself or staff. The patient did have multiple empty vodka bottles. The patient was brought from an [facility] for which she has been living [place] with son and [id number] in 2013 in [place]. In late she moved to the [place] for which she continued her healthcare at [facility] in [place] in the past and was at [facility] and [facility] when she was living with her son. Patient has a hx etoh abuse with rehab x2. She was found down in her apartment and unclear whether she fell or passed out and covered with urine and feces, confused and disoriented. Multiple empty bottles of vodka were also present in the apartment. Patient was with her VSS HD stable, initial work-up revealed a UTI with cultures pending, CXR showed "old" posterior left rib fractures and a C-spine fusion, CT head unremarkable, NAHOMY seen with cr 4, leukocytosis WBC 14.3, Na 155, BUN 130, UA showed pyuria. - CONSULTS | PROCEDURES Consultations: dietitian, PT/OT Procedures: none - HOSPITAL COURSE Hospital Course: Patient was admitted for acute eto intoxication with associated NAHOMY/Dehydration s/p fall unclear mechanism wtih suspected rhabdomyolysis, severe electrolyte disturbance and encephalopathy. Initially palced on IV banana bag with aggressive IV repletion of lytes and monitoring for seizures, DT's and aspiration events. CIWA was emplyed throughout hospitalization, patient imported over a the next 48 hrs with impaired cognition, ataxia, tremors and memory deficits likely from thiamine def which was addressed with 3 days of IV thiamine. Wernicke's Encephalopathy pbserved clinically. Hyperuricemia addressed with allopurinol. Macrocytic anemia sec to chronic etoh abuse seen. Vit b12/FA levels ordered. On MVI/FA and oral thiamine after receiving 3 days of IV thiamine at 500 mg TID. Patient's NAHOMY had essentially resolved along with marked improvement to hydration status, electrolytes, HTN and weakness. Patient had a UTI Klebsiella sp guerrero-sensistive which was tx with Cipro for a 7 day course. Nutrition was optimized with the addition of supplementation for severe prot-blu def malnutrition with improving appetite with megace and remeron. Patient found to be FA def. Replace FA with supplementation 1 mg po daily, cont with MVI and thiamine PO. Physical deconditioning was evident on ambulation and ADL's assessment, PT recommended [facility] SNF for ongoing PT/OT and ST needs with ongoing rehab. - ALLERGIES Allergies/Adverse Reactions: Allergies Allergy/AdvReac Type Severity Reaction Status Date / Time lisinopril Allergy Severe Anaphylaxis Verified 03/15/18 18:13 - MEDICATIONS Home Medications: Ambulatory Orders Medication Instructions Recorded Confirmed Amlodipine Besylate 10 mg PO DAILY 11/22/17 03/15/18 Cholecalciferol (Vitamin D3) 1,000 cap PO DAILY 11/22/17 03/15/18 [Vitamin D3] Lactobacillus Acidophilus 1 tab PO DAILY 11/22/17 03/15/18 [Probiotic Acidophilus] PARoxetine HCl [Paroxetine HCl] 40 mg PO DAILY 11/22/17 03/15/18 Tolterodine Tartrate [Detrol LA] 4 mg PO DAILY 11/22/17 03/15/18 Alendronate Sodium 70 mg PO Q7D 03/15/18 03/15/18 Acetaminophen [Tylenol] 650 mg PO Q4HR PRN tablet 03/23/18 Atorvastatin [Lipitor] 20 mg PO QPM tablet 03/23/18 Folic Acid 1 mg PO DAILY tablet 03/23/18 Magnesium Oxide [Mag Ox] 800 mg PO BIDWM tablet 03/23/18 Mirtazapine [Remeron] 7.5 mg PO QPM tablet 03/23/18 Naltrexone HCl 50 mg PO DAILY #30 tablet 03/23/18 Nicotine 14 mg Patch [Nicoderm] 1 patch TOP DAILY patch 03/23/18 Ondansetron Odt [Zofran Odt] 4 mg TL Q6HR PRN tablet 03/23/18 Pantoprazole [Protonix] 40 mg PO QDAC tablet 03/23/18 Polyethylene Glycol 3350 [Miralax] 17 gm PO DAILY packet 03/23/18 Thiamine [Vitamin B-1] 100 mg PO BID tablet 03/23/18 traZODone [Desyrel] 100 mg PO QPM tablet 03/23/18 - PHYSICAL EXAM AT DISCHARGE General Appearance: positive: No acute distress, Anxious Eyes Bilateral: positive: Normal inspection ENT: positive: ENT inspection nml Neck: positive: Nml inspection, Thyroid nml, No JVD, Trachea midline. negative: Thyromegaly Respiratory: positive: Chest non-tender, No respiratory distress, Breath sounds nml Cardiovascular: positive: Regular rate & rhythm, No murmur, No gallop Peripheral Pulses: positive: 2+ Abdomen: positive: Non-tender, No organomegaly, Nml bowel sounds, No distention Back: positive: Nml inspection Skin: positive: Color nml, No rash, Warm Extremities: positive: Non-tender, Full ROM, Nml appearance Neurologic/Psychiatric: positive: CN's nml (2-12), Mood/affect nml, Weakness, Other (memory poor, cognition abnormal ) - LABS Result Diagrams: 03/23/18 05:54 03/23/18 05:54 - FOLLOW UP Follow Up: F/u with Dr. MCELROY in 1-2 weeks - TIME SPENT Time Spent in Discharge (Minutes): 35
[2018-03-23 16:16] LABS: FOLATE 5.08 ng/mL (5.90 - >24.8)
[2018-03-23] MEDS: traZODone 50 MG TABLET PO SCH (20:08)
[2018-03-23] MEDS: ZINC OXIDE 20% OINT 28.35 GM TUBE TOP PRN (20:08)
[2018-03-23] MEDS: ATORVASTATIN 10 MG TABLET PO SCH (20:08)
[2018-03-23] MEDS: MIRTAZAPINE 15 MG TABLET PO SCH (20:08)
[2018-03-23] MEDS: NON FORMULARY MED PO SCH (20:09)
[2018-03-24] MEDS: SODIUM CHLORIDE 0.45% 1,000 ML IV SCH (00:31)
[2018-03-24] MEDS: SODIUM CHLORIDE FLUSH 0.9% 10 ML SYRINGE IVP SCH ×2 (00:55→08:36)
[2018-03-24] MEDS ORDERED: ALENDRONATE 70 MG TABLET PO SCH (07:00)
[2018-03-24] MEDS ORDERED: PANTOPRAZOLE 40 MG TABLET PO SCH (07:00)
[2018-03-24 08:09] VITALS: BP 111/48
[2018-03-24] MEDS: FOLIC ACID 1 MG TABLET PO SCH (08:35)
[2018-03-24] MEDS: THIAMINE 100 MG TABLET PO SCH (08:35)
[2018-03-24] MEDS: CIPROFLOXACIN 250 MG TABLET PO SCH (08:35)
[2018-03-24] MEDS: PARoxetine 10 MG TABLET PO SCH (08:35)
[2018-03-24] MEDS: LACTOBACILLUS RHAMNOSUS GG CAPSULE PO SCH (08:36)
[2018-03-24] MEDS: MAGNESIUM OXIDE 400 MG TABLET PO SCH (08:36)
[2018-03-24] MEDS: TOLTERODINE LA 2 MG CAPSULE PO SCH (08:36)
[2018-03-24] MEDS: MEGESTROL 400 MG/10 ML UDC PO SCH (08:36)
[2018-03-24] MEDS: NICOTINE 14 MG PATCH TOP SCH (08:36)
[2018-03-24] MEDS: amLODIPine 5 MG TABLET PO SCH (08:36)
[2018-03-24] MEDS: CHOLECALCIFEROL 1,000 UNIT TABLET PO SCH (08:36)
[2018-03-24] MEDS: POLYETHYLENE GLYCOL 3350 17 GM PACKET PO SCH (08:37)
== END 2018-03-24 13:45 | DRG 640 ==
LOC: EDUNIT# → ED 15:49 → MS2 17:35
PROVIDERS: ADMIT Specialist; ATTEND Family Medicine
PROC: HZ2ZZZZ Detoxification Services for Substance Abuse Treatment (ICD-10-PCS; principal; 2018-03-15)
DX: E51.2 Wernicke's encephalopathy (principal); R41.0 Disorientation, unspecified; E43 Unspecified severe protein-calorie malnutrition; N17.9 Acute kidney failure, unspecified; N39.0 Urinary tract infection, site not specified; E87.0 Hyperosmolality and hypernatremia; Z68.1 Body mass index [BMI] 19.9 or less, adult; R64 Cachexia; F10.221 Alcohol dependence with intoxication delirium; Y90.0 Blood alcohol level of less than 20 mg/100 ml; D53.9 Nutritional anemia, unspecified; E86.0 Dehydration; I12.9 Hypertensive chronic kidney disease with stage 1 through stage 4 chronic kidney disease, or unspecified chronic kidney disease; N18.3 Chronic kidney disease, stage 3 (moderate); B96.1 Klebsiella pneumoniae [K. pneumoniae] as the cause of diseases classified elsewhere; E79.0 Hyperuricemia without signs of inflammatory arthritis and tophaceous disease; E83.42 Hypomagnesemia; E87.6 Hypokalemia; I95.9 Hypotension, unspecified; R19.7 Diarrhea, unspecified; M81.0 Age-related osteoporosis without current pathological fracture; R32 Unspecified urinary incontinence; N32.81 Overactive bladder; T51.0X1A Toxic effect of ethanol, accidental (unintentional), initial encounter; D64.89 Other specified anemias; E78.5 Hyperlipidemia, unspecified; K21.9 Gastro-esophageal reflux disease without esophagitis; F41.8 Other specified anxiety disorders; D63.1 Anemia in chronic kidney disease; E21.2 Other hyperparathyroidism; F17.200 Nicotine dependence, unspecified, uncomplicated; Z91.81 History of falling; Z79.899 Other long term (current) drug therapy; Z98.1 Arthrodesis status; Y92.099 Unspecified place in other non-institutional residence as the place of occurrence of the external cause; Z87.81 Personal history of (healed) traumatic fracture; Z85.3 Personal history of malignant neoplasm of breast
CPT/HCPCS: 36415; 51702; 70450; 71045; 80048; 80053; 80306; 80307; 80320; 80329; 81001; 81003; 82009; 82140; 82550; 82607; 82746; 82803; 83540; 83605; 83690; 83735; 83880; 84100; 84439; 84443; 84466; 84484; 84550; 85025; 85610; 85730; 87040; 87077; 87086; 87181; 87493; 93005; 99284